=== PATIENT | male | born 1980 | race Caucasian/White ===

== ENCOUNTER 2019-11-09 00:11 | Inpatient (IN) ==
[2019-11-09] MEDS ORDERED: ONDANSETRON INJ 2 MG/ML 2 ML VIAL IV STA (01:06)
[2019-11-09] MEDS ORDERED: KETOROLAC 30 MG/ML VIAL IV STA (01:06)
[2019-11-09] MEDS ORDERED: MoRPHine SULFATE 4 MG/ML 1 ML CARP\\VIAL IV STA ×2 (01:06→01:39)
[2019-11-09] MEDS ORDERED: SODIUM CHLORIDE 0.9% 1000ML 1,000 ML IV SCH ×2 (01:15→04:05)
[2019-11-09 01:16] LABS: Basophils # (auto) 0.01 K/uL (0-0.2); Basophils % (auto) 0.1 %; Eosinophils # (auto) 0.21 K/uL (0-0.5); Eosinophils % (auto) 2.1 %; Hematocrit (blood only) 43.2 % (42-52); Hemoglobin 15.4 g/dL (14.0-18.0); Immature Granulocytes # (auto) 0.02 K/uL (0.00-0.02); Immature Granulocytes % (auto) 0.2 %; Lymphocytes # (auto) 1.39 K/uL (1.2-3.4); Lymphocytes % (auto) 13.6 %; Mean Corpuscular Hgb Conc 35.6 g/dL (32-36); Mean Corpuscular Volume 92.7 fL (80-100); Mean Platelet Volume 11.1 fL (7.4-10.4); Monocytes # (auto) 1.06 K/uL (0.11-0.59); Monocytes % (auto) 10.4 %; Neutrophils % (auto) 73.6 %; Platelet Count 213 K/uL (130-400); RDW Coefficient of Variation 12.8 % (11.5-14.5); RDW Standard Deviation 43.4 fL (36.4-46.3); Red Blood Count 4.66 M/uL (4.7-6.1); White Blood Count 10.19 K/uL (4.8-10.8)
[2019-11-09 01:25] LABS: Alanine Aminotransferase 45 U/L (12-78); Albumin Level 4.2 gm/dl (3.4-5.0); Aspartate Aminotransferase 34 U/L (15-37); BUN Creatinine Ratio 15.3 (10-20); Blood Urea Nitrogen 14 mg/dl (7-18); Calcium 9.1 mg/dl (8.5-10.1); Carbon Dioxide 28 mmol/L (21-32); Chloride 99 mmol/L (98-107); Creatinine Clr Calc Pharmacy 125.1 ml/min; Est GFR (African American) 123.4; Est GFR (Non-African American) 106.5; Glucose 99 mg/dl (70-99); Potassium 3.2 mmol/L (3.5-5.1); Sodium 136 mmol/L (136-145)
[2019-11-09 01:28] LABS: Prothrombin Time 10.7 Seconds (9.0-12.0)
[2019-11-09 01:29] LABS: Alkaline Phosphatase 83 U/L (45-117); Amylase 638 U/L (25-115); Bilirubin,Total 0.6 mg/dl (0.2-1); Globulin 4.3 gm/dl (2.5-4.0); Lipase 7358 U/L (73-393); Total Protein 8.5 gm/dl (6.4-8.2); Troponin I < 0.015 ng/ml (0-0.045)
[2019-11-09] MEDS ORDERED: IOVERSOL 100ml IV ONE (01:31)
[2019-11-09 02:52] LABS: Appearance Urine Clear (Clear); Bilirubin Urine Negative (Negative); Blood Urine Negative (Negative); Color Urine Yellow; Glucose Urine UA Negative (Negative); Ketones Urine Negative (Negative); Leukocyte Esterase Urine Negative (Negative); Nitrite Urine Negative (Negative); Protein Urine Negative (Negative); Specific Gravity Urine > 1.045 (1.000-1.030); Urobilinogen Urine Negative (Negative)
[2019-11-09] MEDS ORDERED: HYDROmorphone INJ 0.5 MG/0.5 ML SYR IV STA (03:00)
[2019-11-09 03:10] LABS: Amphetamines+Metham, Urine Neg (Neg); Barbiturates, Urine Neg (Neg); Benzodiazepine, Urine Pos (Neg); Cocaine, Urine Neg (Neg); MDMA (Ecstacy), Urine Neg (Neg); Methadone, Urine Neg (Neg); Opiate, Urine Pos (Neg); Phencyclidine, Urine Neg (Neg)
--- NOTE | 2019-11-09 04:54 | History & Physical Report ---
Date of Service November 09, 2019 Assessment & Plan (1) Recurrent acute pancreatitis: By history of patient and significant other, this is his third episode within the past few months. Upon questioning regarding alcohol intake, patient reports that he probably drinks too much, but does not think that is the cause of his pancreatitis. Amylase 638, lipase 7358 with normal LFTs. Follow labs serially CT abdomen pelvis consistent with acute pancreatitis, without suggestion of chronic pancreatitis or pseudocyst. Unable to do MRCP due to presence of metal in his recently surgerized right thumb. Patient is received 1 L normal saline while in the ED, and we will give him a second liter now. Maintenance fluids of NSS + KCl 20 mEq at 100 mils per hour Consult gastroenterology. Present on Admission?: Yes (2) Anxiety: Anxiety with depression- Continue sertraline and gabapentin. Present on Admission?: Yes (3) Depression: See above Present on Admission?: Yes (4) Peripheral neuropathy: Continue gabapentin Present on Admission?: Yes (5) Hypertension: Continue atenolol and clonidine, however, monitor with hold parameters, as patient is borderline bradycardic while in the ED. Hold HCTZ Hydralazine 10 mg IV every 4 hours PRN systolic blood pressure greater than 160 Present on Admission?: Yes (6) Hyperlipidemia: Continue simvastatin Present on Admission?: Yes (7) GERD (gastroesophageal reflux disease): Continue Nexium or substitute pantoprazole Present on Admission?: Yes (8) Alcohol use disorder: Patient is not showing any signs of withdrawal at this point, however alcohol level was normal in the ED, suggesting that he may need to be placed on AWSS protocol. Urine drug screen was positive for opiates (of which he is prescribed hydrocodone), benzodiazepines (which is not on his med list) and marijuana. Present on Admission?: Yes History of Present Illness Chief Complaint: The patient presents to the emergency department with complaint of abdominal pain worsening over the past 24 hours Primary Care Provider: Bacilio Weeks MD The patient is a 39-year-old male with a past medical history of recurrent pancreatitis, hypertension, GERD, peripheral neuropathy, depression, hyperlipidemia and status post recent surgery on right thumb on 11/07/2019. He presents to the emergency department with complaint of worsening abdominal pain similar to previous episodes of pancreatitis, which have been treated at [facility] and most recently [facility]. Laboratories in the emergency department showed amylase [address] of abdomen the pelvis was consistent with pancreatitis. Urine drug screen was positive for opiates, benzos and marijuana. He has been prescribed hydrocodone on his current med list. Allergies Allergy/AdvReac Type Severity Reaction Status Date / Time No Known Allergies Allergy Verified 11/09/19 00:56 Home Medications Home Medications Medication Instructions Recorded Confirmed Type atenolol 50 mg PO QAM 11/06/19 11/09/19 History clonidine HCl 0.3 mg PO BID 11/06/19 11/09/19 History gabapentin 800 mg PO TID 11/06/19 11/09/19 History hydrochlorothiazide 25 mg PO QAM 11/06/19 11/09/19 History hydrocodone-acetaminophen 1 tab PO Q6H PRN 11/06/19 11/09/19 History sertraline 100 mg PO QAM 11/06/19 11/09/19 History simvastatin 40 mg PO QAM 11/06/19 11/09/19 History esomeprazole magnesium [Nexium] 40 mg PO DAILY 11/09/19 11/09/19 History Past Med/Surg History Medical History (Updated 11/09/19 @ 05:41 by Donavon Segundo MD) Anxiety Depression GERD (gastroesophageal reflux disease) Hyperlipidemia Hypertension Peripheral neuropathy Surgical History History of colonoscopy History of discectomy LUMBAR Social History Smoking Status: Never smoker Cigarettes Per Day: 20 CIGS PER DAY; Second Hand Exposure: Yes; Hx Alcohol Use: Yes Alcohol type: beer Hx Substance Use: No Preferred Language: Chinese Communication Ability: Effective Miner Operator Required: No Beliefs That Will Affect Care: None Current Living Situation: Significant Other Feels Safe at Home: Yes Assistive Devices: None Review of Systems Review of Systems: The patient denies chest pain, palpitations, shortness of breath, dyspnea on exertion, cough, lower extremity swelling, sore throat, fevers, chills, sweats, weight change, fatigue, nausea, vomiting, diarrhea , constipation, blood in urine or stool, dysuria, urinary frequency or urgency, lightheadedness, dizziness, headache, memory loss, loss of consciousness, abnormal bruising or bleeding, imbalance, focal or generalized weakness, numbness or tingling in legs, generalized arthralgias or myalgias, back or neck pain, or night sweats. The review of systems is otherwise negative other than for that already noted above, and at least 10 systems have been reviewed. Physical Exam Physical Exam: The patient is awake, mildly sedated and lethargic from pain medications, well developed and well nourished, normocephalic and atraumatic, lying in bed and reports to be in moderate acute distress. HEENT--PERRL, EOMI, mucous membranes and oropharynx normal. Neck--supple. No JVD. No bruits. Thyroid normal, trachea midline, no adenopathy. Heart--normal S1 and S2. No murmurs, rubs or gallops. Lungs--clear bilaterally, no respiratory distress, no accessory muscle use. Abdomen--normal bowel sounds and soft. Nontender. Nondistended. Extremities--no cyanosis or clubbing. No edema. Right forearm and thumb in immobilizer. Dermatologic--normal skin turgor, normal color, no abnormal lymph nodes, no rash. Neurologic--cranial nerves II through XII grossly intact. Rheumatologic--normal range of motion. Psychiatric--normal affect. Results & Data Results & Data ([facility]) Vital Signs (Past 12 Hours) Vital Signs Temp Pulse Resp BP Pulse Ox 11/09/19 04:30 61 21 165/110 H 96 11/09/19 04:04 62 16 193/124 H 11/09/19 03:11 60 16 192/128 H 96 11/09/19 02:30 66 16 174/117 H 96 11/09/19 02:01 65 17 201/125 H 95 11/09/19 01:21 65 14 187/117 H 94 11/09/19 00:17 98.1 F 73 20 171/120 H 97 Laboratory Results Laboratory Results WBC 10.19 K/uL (4.8-10.8) 11/09/19 00:35 RBC 4.66 M/uL (4.7-6.1) L 11/09/19 00:35 Hgb 15.4 g/dL (14.0-18.0) 11/09/19 00:35 Hct 43.2 % (42-52) 11/09/19 00:35 MCV 92.7 fL (80-100) 11/09/19 00:35 MCH 33.0 pg (25-34) 11/09/19 00:35 MCHC 35.6 g/dL (32-36) 11/09/19 00:35 RDW Std Deviation 43.4 fL (36.4-46.3) 11/09/19 00:35 RDW Coeff of Nehemias 12.8 % (11.5-14.5) 11/09/19 00:35 Plt Count 213 K/uL (130-400) 11/09/19 00:35 MPV 11.1 fL (7.4-10.4) H 11/09/19 00:35 Immature Gran % (Auto) 0.2 % 11/09/19 00:35 Neut % (Auto) 73.6 % 11/09/19 00:35 Lymph % (Auto) 13.6 % 11/09/19 00:35 [place] % (Auto) 10.4 % 11/09/19 00:35 Eos % (Auto) 2.1 % 11/09/19 00:35 Baso % (Auto) 0.1 % 11/09/19 00:35 Neut # (Auto) 7.50 K/uL (1.4-6.5) H 11/09/19 00:35 Lymph # (Auto) 1.39 K/uL (1.2-3.4) 11/09/19 00:35 [place] # (Auto) 1.06 K/uL (0.11-0.59) H 11/09/19 00:35 Eos # (Auto) 0.21 K/uL (0-0.5) 11/09/19 00:35 Baso # (Auto) 0.01 K/uL (0-0.2) 11/09/19 00:35 Immature Gran # (Auto) 0.02 K/uL (0.00-0.02) 11/09/19 00:35 PT 10.7 Seconds (9.0-12.0) 11/09/19 00:35 INR 1.0 (0.9-1.1) 11/09/19 00:35 APTT 27.0 Seconds (21.0-31.0) 11/09/19 00:35 PTT Ratio 1.0 11/09/19 00:35 Sodium 136 mmol/L (136-145) 11/09/19 00:35 Potassium 3.2 mmol/L (3.5-5.1) L 11/09/19 00:35 Chloride 99 mmol/L (98-107) 11/09/19 00:35 Carbon Dioxide 28 mmol/L (21-32) 11/09/19 00:35 Anion Gap 9.0 (3-11) 11/09/19 00:35 BUN 14 mg/dl (7-18) 11/09/19 00:35 Creatinine 0.90 mg/dl (0.6-1.4) 11/09/19 00:35 Est Cr Clr Drug Dosing 125.1 ml/min 11/09/19 00:35 Est GFR ( Amer) 123.4 11/09/19 00:35 Est GFR (Non-Af Amer) 106.5 11/09/19 00:35 BUN/Creatinine Ratio 15.3 (10-20) 11/09/19 00:35 Glucose 99 mg/dl (70-99) 11/09/19 00:35 Calcium 9.1 mg/dl (8.5-10.1) 11/09/19 00:35 Total Bilirubin 0.6 mg/dl (0.2-1) 11/09/19 00:35 AST 34 U/L (15-37) 11/09/19 00:35 ALT 45 U/L (12-78) 11/09/19 00:35 Alkaline Phosphatase 83 U/L (45-117) 11/09/19 00:35 Troponin I < 0.015 ng/ml (0-0.045) 11/09/19 00:35 Total Protein 8.5 gm/dl (6.4-8.2) H 11/09/19 00:35 Albumin 4.2 gm/dl (3.4-5.0) 11/09/19 00:35 Globulin 4.3 gm/dl (2.5-4.0) H 11/09/19 00:35 Albumin/Globulin Ratio 1.0 (0.9-2) 11/09/19 00:35 Amylase 638 U/L (25-115) H 11/09/19 00:35 Lipase 7358 U/L (73-393) H 11/09/19 00:35 Urine Color Yellow 11/09/19 02:42 Urine Appearance Clear (Clear) 11/09/19 02:42 Urine pH 7.0 (4.5-7.5) 11/09/19 02:42 Ur Specific [place] > 1.045 (1.000-1.030) H 11/09/19 02:42 Urine Protein Negative (Negative) 11/09/19 02:42 Urine Glucose (UA) Negative (Negative) 11/09/19 02:42 Urine Ketones Negative (Negative) 11/09/19 02:42 Urine Blood Negative (Negative) 11/09/19 02:42 Urine Nitrite Negative (Negative) 11/09/19 02:42 Urine Bilirubin Negative (Negative) 11/09/19 02:42 Urine Urobilinogen Negative (Negative) 11/09/19 02:42 Ur Leukocyte Esterase Negative (Negative) 11/09/19 02:42 Urine Opiates Screen Pos (Neg) H 11/09/19 02:42 Ur Methadone, Qual Neg (Neg) 11/09/19 02:42 Urine Barbiturates Neg (Neg) 11/09/19 02:42 Ur Phencyclidine (PCP) Neg (Neg) 11/09/19 02:42 U Amphetamin/Meth Scrn Neg (Neg) 11/09/19 02:42 MDMA (Ecstasy) Screen Neg (Neg) 11/09/19 02:42 U Benzodiazepines Scrn Pos (Neg) H 11/09/19 02:42 Ur Cocaine Metabolite Neg (Neg) 11/09/19 02:42 U Marijuana (THC) Screen Pos (Neg) H 11/09/19 02:42 Ethyl Alcohol mg/dL < 3.0 mg/dl (0-3) 11/09/19 01:36 Diagnostic Findings [facility] Patient: RAJI ARRINGTON JR (Male) : 78 Status: ER Date: 11/09/19 01:55 Room #: History: UPPER ABD PAIN, H/O PANCREATITIS Slices: [id number] Priors: Tech: Moiz Monteiro @ [phone] Exams: CT ABDOMEN & PELVIS With Contrast Contrast: IV Amt: 92 ML OPTIRAY 320 Accession Numbers: [id number] Preliminary Findings Only See Final Report For Complete Findings CT ABDOMEN & PELVIS With Contrast: Prominent retroperitoneal fat stranding and edema noted surrounding the pancreas and descending duodenum with extension to the left anterior pararenal fascia. Primary consideration is pancreatitis. Duodenitis is considered much less likely. Please correlate with laboratory findings. No loculated pseudocyst or pancreatic ductal dilatation. Mild free fluid in the pelvis is presumed minimal extension from the retroperitoneal process. Hepatic steatosis. The gallbladder, spleen, adrenal glands and kidneys are otherwise unremarkable. No bowel obstruction or significant focal bowel mucosal abnormality. No pneumoperitoneum. Incidental normal caliber appendix in the right lower quadrant. Bladder is mildly distended without significant wall abnormalities or calcifications. No acute osseous or significant overlying soft tissue abnormality. Radiologist: Escobar Cody MD Study ready at 02:00 and initial results transmitted at 02:18 *This report constitutes a preliminary interpretation only. Non-acute findings felt to be unrelated to the clinical presentation may not be discussed in this report. The study will be interpreted and a final report will be generated by the local Radiologist the following shift. To reach the hospital radiology department call [phone]. If a discrepancy is found between the preliminary and final interpretations of this study, please notify us via our Client Portal at [email or web address]!, under QA Exams.You can also fax this report with a description of the discrepancy, or include the final report, to our daytime fax number [phone].If faxing, please indicate the severity of discrepancy using one of the following categories: [ ] 1 - Agree/Informational [ ] 2 - Unlikely to Affect Management [ ] 3 - Possible Eventual Change of Management [ ] 4 - Probable Immediate Change of Management For all other patient related information, please fax us at [phone]. [id number] Code Status & VTE Plan Code Status Full code VTE Prophylaxis Plan VTE Prophylaxis will be ordered: Yes PG Care Time/CCT Total # of Minutes Spent Total Time Spent with Patient: Total time spent is greater than 50% in coordination of care (as documented) at patient's floor/unit and/or counseling patient: Coding Level of Care Code 08546 Initial Inpt Care Lvl 3 Diagnoses Recurrent acute pancreatitis K85.90 Anxiety F41.9 Depression F32.9 Peripheral neuropathy G62.9 Hypertension I10 Hyperlipidemia E78.5 GERD (gastroesophageal reflux disease) K21.9 Alcohol use disorder
--- NOTE | 2019-11-09 05:21 | Emergency Department Note ---
History of Present Illness General Chief complaint: Abdominal Pain Stated complaint: ABD PAIN Time Seen by Provider: 11/09/19 00:39 History of Present Illness Maximum Pain Intensity: 10 Home Medications Home Medications Medication Instructions Recorded Confirmed Type atenolol 50 mg PO QAM 11/06/19 11/09/19 History clonidine HCl 0.3 mg PO BID 11/06/19 11/09/19 History gabapentin 800 mg PO TID 11/06/19 11/09/19 History hydrochlorothiazide 25 mg PO QAM 11/06/19 11/09/19 History hydrocodone-acetaminophen 1 tab PO Q6H PRN 11/06/19 11/09/19 History sertraline 100 mg PO QAM 11/06/19 11/09/19 History simvastatin 40 mg PO QAM 11/06/19 11/09/19 History esomeprazole magnesium [Nexium] 40 mg PO DAILY 11/09/19 11/09/19 History Allergies Allergy/AdvReac Type Severity Reaction Status Date / Time No Known Allergies Allergy Verified 11/09/19 00:56 Past Med/Surg History Medical History Anxiety Depression Hyperlipidemia Hypertension Peripheral neuropathy Surgical History History of colonoscopy History of discectomy LUMBAR Social History Smoking Status: Never smoker Cigarettes Per Day: 20 CIGS PER DAY; Second Hand Exposure: Yes; Hx Alcohol Use: Yes Alcohol type: beer Hx Substance Use: No Preferred Language: Sami Communication Ability: Effective Infantry Assaultman Required: No Beliefs That Will Affect Care: None Current Living Situation: Significant Other Feels Safe at Home: Yes Assistive Devices: None Physical Exam Vital Signs Vital Signs - 24 hr 11/09/19 00:17 11/09/19 01:21 11/09/19 02:01 Temperature 36.7 C Temperature Source Oral Pulse Rate 73 65 65 Pulse Rate from SpO2 Sensor 65 65 Pulse Rhythm Regular Pulse Strength Normal Respiratory Rate 20 14 17 Respiratory Effort / Characteristics Non-Labored Spontaneous Respiratory Depth Normal Respiratory Pattern Regular Blood Pressure 171/120 H 187/117 H 201/125 H Blood Pressure Mean 137 138 151 Blood Pressure Position Sitting Pulse Oximetry 97 94 95 Oxygen Delivery Method Room Air Sepsis Recent Fever Within 48 Hours No Sepsis New/Unexplained Change in Mental Status No Sepsis Action Taken by Nursing No Action Required 11/09/19 02:30 11/09/19 03:11 11/09/19 04:04 Temperature Temperature Source Pulse Rate 66 60 62 Pulse Rate from SpO2 Sensor 61 Pulse Rhythm Pulse Strength Respiratory Rate 16 16 16 Respiratory Effort / Characteristics Respiratory Depth Respiratory Pattern Blood Pressure 174/117 H 192/128 H 193/124 H Blood Pressure Mean 123 148 139 Blood Pressure Position Pulse Oximetry 96 96 Oxygen Delivery Method Sepsis Recent Fever Within 48 Hours Sepsis New/Unexplained Change in Mental Status Sepsis Action Taken by Nursing 11/09/19 04:30 Temperature Temperature Source Pulse Rate 61 Pulse Rate from SpO2 Sensor Pulse Rhythm Pulse Strength Respiratory Rate 21 Respiratory Effort / Characteristics Respiratory Depth Respiratory Pattern Blood Pressure 165/110 H Blood Pressure Mean 122 Blood Pressure Position Pulse Oximetry 96 Oxygen Delivery Method Sepsis Recent Fever Within 48 Hours Sepsis New/Unexplained Change in Mental Status Sepsis Action Taken by Nursing Course Administered Medications Discontinued Medications Hydromorphone HCl (Hydromorphone Inj 0.5 Mg/0.5 Ml Syr) 0.5 mg IV NOW STA Stop: 11/09/19 03:01 Last Admin: 11/09/19 03:12 Dose: 0.5 mg Documented by: [id number] Sodium Chloride (Nss 1000ml) 1,000 mls @ 999 mls/hr IV .Q1H1M CANDICE Stop: 11/09/19 02:15 Last Infusion: 11/09/19 02:12 Dose: 0 mls/hr Documented by: [id number] Admin: 11/09/19 01:15 Dose: 999 mls/hr Documented by: [id number] Ioversol (Ioversol 100ml) 100 ml IV ONCE ONE Stop: 11/09/19 01:32 Last Admin: 11/09/19 01:31 Dose: 92 ml Documented by: [id number] Ketorolac Tromethamine (Ketorolac 30 Mg/Ml Vial) 30 mg IV NOW STA Stop: 11/09/19 01:07 Last Admin: 11/09/19 01:16 Dose: 30 mg Documented by: [id number] Morphine Sulfate (Morphine Sulfate 4 Mg/Ml 1 Ml Carp\Vial) 4 mg IV NOW STA Stop: 11/09/19 01:07 Last Admin: 11/09/19 01:16 Dose: 4 mg Documented by: [id number] Morphine Sulfate (Morphine Sulfate 4 Mg/Ml 1 Ml Carp\Vial) 4 mg IV NOW STA Stop: 11/09/19 01:40 Last Admin: 11/09/19 02:12 Dose: 4 mg Documented by: [id number] Ondansetron HCl (Ondansetron Inj 2 Mg/Ml 2 Ml Vial) 4 mg IV NOW STA Stop: 11/09/19 01:07 Last Admin: 11/09/19 01:16 Dose: 4 mg Documented by: [id number] Medical Decision Making Laboratory Data Result diagrams: 11/09/19 00:35 11/09/19 00:35 Lab Results 11/09/19 11/09/19 11/09/19 Range/Units 00:35 00:35 00:35 WBC 10.19 (4.8-10.8) K/uL RBC 4.66 L (4.7-6.1) M/uL Hgb 15.4 (14.0-18.0) g/dL Hct 43.2 (42-52) % MCV 92.7 (80-100) fL MCH 33.0 (25-34) pg MCHC 35.6 (32-36) g/dL RDW Std Deviation 43.4 (36.4-46.3) fL RDW Coeff of Nehemias 12.8 (11.5-14.5) % Plt Count 213 (130-400) K/uL MPV 11.1 H (7.4-10.4) fL Immature Gran % (Auto) 0.2 % Neut % (Auto) 73.6 % Lymph % (Auto) 13.6 % [place] % (Auto) 10.4 % Eos % (Auto) 2.1 % Baso % (Auto) 0.1 % Neut # (Auto) 7.50 H (1.4-6.5) K/uL Lymph # (Auto) 1.39 (1.2-3.4) K/uL [place] # (Auto) 1.06 H (0.11-0.59) K/uL Eos # (Auto) 0.21 (0-0.5) K/uL Baso # (Auto) 0.01 (0-0.2) K/uL Immature Gran # (Auto) 0.02 (0.00-0.02) K/uL PT 10.7 (9.0-12.0) Seconds INR 1.0 (0.9-1.1) APTT 27.0 (21.0-31.0) Seconds PTT Ratio 1.0 Sodium 136 (136-145) mmol/L Potassium 3.2 L (3.5-5.1) mmol/L Chloride 99 (98-107) mmol/L Carbon Dioxide 28 (21-32) mmol/L Anion Gap 9.0 (3-11) BUN 14 (7-18) mg/dl Creatinine 0.90 (0.6-1.4) mg/dl Est Cr Clr Drug Dosing 125.1 ml/min Est GFR ( Amer) 123.4 Est GFR (Non-Af Amer) 106.5 BUN/Creatinine Ratio 15.3 (10-20) Glucose 99 (70-99) mg/dl Calcium 9.1 (8.5-10.1) mg/dl Total Bilirubin 0.6 (0.2-1) mg/dl AST 34 (15-37) U/L ALT 45 (12-78) U/L Alkaline Phosphatase 83 (45-117) U/L Troponin I < 0.015 (0-0.045) ng/ml Total Protein 8.5 H (6.4-8.2) gm/dl Albumin 4.2 (3.4-5.0) gm/dl Globulin 4.3 H (2.5-4.0) gm/dl Albumin/Globulin Ratio 1.0 (0.9-2) Amylase 638 H (25-115) U/L Lipase 7358 H (73-393) U/L Urine Color Urine Appearance (Clear) Urine pH (4.5-7.5) Ur Specific [place] (1.000-1.030) Urine Protein (Negative) Urine Glucose (UA) (Negative) Urine Ketones (Negative) Urine Blood (Negative) Urine Nitrite (Negative) Urine Bilirubin (Negative) Urine Urobilinogen (Negative) Ur Leukocyte Esterase (Negative) Urine Opiates Screen (Neg) Ur Methadone, Qual (Neg) Urine Barbiturates (Neg) Ur Phencyclidine (PCP) (Neg) U Amphetamin/Meth Scrn (Neg) MDMA (Ecstasy) Screen (Neg) U Benzodiazepines Scrn (Neg) Ur Cocaine Metabolite (Neg) U Marijuana (THC) Screen (Neg) Ethyl Alcohol mg/dL (0-3) mg/dl 10/01/20 10/01/20 10/01/20 Range/Units 01:36 02:42 02:42 WBC (4.8-10.8) K/uL RBC (4.7-6.1) M/uL Hgb (14.0-18.0) g/dL Hct (42-52) % MCV (80-100) fL MCH (25-34) pg MCHC (32-36) g/dL RDW Std Deviation (36.4-46.3) fL RDW Coeff of Nehemias (11.5-14.5) % Plt Count (130-400) K/uL MPV (7.4-10.4) fL Immature Gran % (Auto) % Neut % (Auto) % Lymph % (Auto) % [place] % (Auto) % Eos % (Auto) % Baso % (Auto) % Neut # (Auto) (1.4-6.5) K/uL Lymph # (Auto) (1.2-3.4) K/uL [place] # (Auto) (0.11-0.59) K/uL Eos # (Auto) (0-0.5) K/uL Baso # (Auto) (0-0.2) K/uL Immature Gran # (Auto) (0.00-0.02) K/uL PT (9.0-12.0) Seconds INR (0.9-1.1) APTT (21.0-31.0) Seconds PTT Ratio Sodium (136-145) mmol/L Potassium (3.5-5.1) mmol/L Chloride (98-107) mmol/L Carbon Dioxide (21-32) mmol/L Anion Gap (3-11) BUN (7-18) mg/dl Creatinine (0.6-1.4) mg/dl Est Cr Clr Drug Dosing ml/min Est GFR ( Amer) Est GFR (Non-Af Amer) BUN/Creatinine Ratio (10-20) Glucose (70-99) mg/dl Calcium (8.5-10.1) mg/dl Total Bilirubin (0.2-1) mg/dl AST (15-37) U/L ALT (12-78) U/L Alkaline Phosphatase (45-117) U/L Troponin I (0-0.045) ng/ml Total Protein (6.4-8.2) gm/dl Albumin (3.4-5.0) gm/dl Globulin (2.5-4.0) gm/dl Albumin/Globulin Ratio (0.9-2) Amylase (25-115) U/L Lipase (73-393) U/L Urine Color Yellow Urine Appearance Clear (Clear) Urine pH 7.0 (4.5-7.5) Ur Specific [place] > 1.045 H (1.000-1.030) Urine Protein Negative (Negative) Urine Glucose (UA) Negative (Negative) Urine Ketones Negative (Negative) Urine Blood Negative (Negative) Urine Nitrite Negative (Negative) Urine Bilirubin Negative (Negative) Urine Urobilinogen Negative (Negative) Ur Leukocyte Esterase Negative (Negative) Urine Opiates Screen Pos H (Neg) Ur Methadone, Qual Neg (Neg) Urine Barbiturates Neg (Neg) Ur Phencyclidine (PCP) Neg (Neg) U Amphetamin/Meth Scrn Neg (Neg) MDMA (Ecstasy) Screen Neg (Neg) U Benzodiazepines Scrn Pos H (Neg) Ur Cocaine Metabolite Neg (Neg) U Marijuana (THC) Screen Pos H (Neg) Ethyl Alcohol mg/dL < 3.0 (0-3) mg/dl Discharge Plan Visit Data Chief Complaint: Abdominal Pain Stated Complaint: ABD PAIN ED Provider: [facility] ED Midlevel Provider: Anson Singleton Prescriptions Prescriptions: No Action clonidine HCl 0.3 mg Tablet 0.3 mg PO BID RF: 0 sertraline 100 mg Tablet 100 mg PO QAM RF: 0 simvastatin 40 mg Tablet 40 mg PO QAM RF: 0 gabapentin 800 mg Tablet 800 mg PO TID RF: 0 hydrochlorothiazide 25 mg Tablet 25 mg PO QAM RF: 0 atenolol 50 mg Tablet 50 mg PO QAM RF: 0 hydrocodone-acetaminophen 5-325 mg Tablet 1 tab PO Q6H PRN (Reason: Pain) RF: 0 esomeprazole magnesium [Nexium] 40 mg Capsule,Delayed Release(Dr/Ec) 40 mg PO DAILY RF: 0
--- NOTE | 2019-11-09 05:25 | Emergency Department Note ---
History of Present Illness General Chief complaint: Abdominal Pain Stated complaint: ABD PAIN Time Seen by Provider: 11/09/19 00:39 History of Present Illness Maximum Pain Intensity: 10 This is a 39-year-old male presenting to the emergency department for evaluation of epigastric abdominal pain for the past few hours. The patient has a history of alcohol abuse and intermittent pancreatitis. This is at least his third episode of similar symptoms in the past few months. The patient did have an orthopedic surgery yesterday for a right thumb fracture, and states that he took Vicodin without any relief of his symptoms. He is not having fever or chills. No difficulty breathing. The patient is not having difficulty regarding the orthopedic procedure, stating that all of his discomfort is in the epigastric abdomen. He rates his current discomfort a 10/10 and is requesting pain and nausea medicine. Home Medications Home Medications Medication Instructions Recorded Confirmed Type atenolol 50 mg PO QAM 11/06/19 11/09/19 History clonidine HCl 0.3 mg PO BID 11/06/19 11/09/19 History gabapentin 800 mg PO TID 11/06/19 11/09/19 History hydrochlorothiazide 25 mg PO QAM 11/06/19 11/09/19 History hydrocodone-acetaminophen 1 tab PO Q6H PRN 11/06/19 11/09/19 History sertraline 100 mg PO QAM 11/06/19 11/09/19 History simvastatin 40 mg PO QAM 11/06/19 11/09/19 History esomeprazole magnesium [Nexium] 40 mg PO DAILY 11/09/19 11/09/19 History Allergies Allergy/AdvReac Type Severity Reaction Status Date / Time No Known Allergies Allergy Verified 11/09/19 00:56 Past Med/Surg History Medical History Anxiety Depression GERD (gastroesophageal reflux disease) Hyperlipidemia Hypertension Peripheral neuropathy Surgical History History of colonoscopy History of discectomy LUMBAR Social History Smoking Status: Never smoker Cigarettes Per Day: 20 CIGS PER DAY; Second Hand Exposure: Yes; Hx Alcohol Use: Yes Alcohol type: beer Hx Substance Use: No Preferred Language: Icelandic Communication Ability: Effective Biometry Teacher Required: No Beliefs That Will Affect Care: None Current Living Situation: Significant Other Feels Safe at Home: Yes Assistive Devices: None Review of Systems A total of 10 systems reviewed and were otherwise negative Physical Exam Vital Signs Vital Signs - 24 hr 11/09/19 00:17 11/09/19 01:21 11/09/19 02:01 Temperature 36.7 C Temperature Source Oral Pulse Rate 73 65 65 Pulse Rate from SpO2 Sensor 65 65 Pulse Rhythm Regular Pulse Strength Normal Respiratory Rate 20 14 17 Respiratory Effort / Characteristics Non-Labored Spontaneous Respiratory Depth Normal Respiratory Pattern Regular Blood Pressure 171/120 H 187/117 H 201/125 H Blood Pressure Mean 137 138 151 Blood Pressure Position Sitting Pulse Oximetry 97 94 95 Oxygen Delivery Method Room Air Sepsis Recent Fever Within 48 Hours No Sepsis New/Unexplained Change in Mental Status No Sepsis Action Taken by Nursing No Action Required 11/09/19 02:30 11/09/19 03:11 11/09/19 04:04 Temperature Temperature Source Pulse Rate 66 60 62 Pulse Rate from SpO2 Sensor 61 Pulse Rhythm Pulse Strength Respiratory Rate 16 16 16 Respiratory Effort / Characteristics Respiratory Depth Respiratory Pattern Blood Pressure 174/117 H 192/128 H 193/124 H Blood Pressure Mean 123 148 139 Blood Pressure Position Pulse Oximetry 96 96 Oxygen Delivery Method Sepsis Recent Fever Within 48 Hours Sepsis New/Unexplained Change in Mental Status Sepsis Action Taken by Nursing VITALS: Vitals are noted on the nurse's note and reviewed by myself. Vital signs stable. GENERAL: Well-developed, well-nourished, white male who appears in moderate discomfort secondary to his stated complaint., NECK: Supple without nuchal rigidity. No lymphadenopathy. No thyromegaly. Cervical spine is nontender. HEART: Regular rate and rhythm without murmurs gallops or rubs. LUNGS: Clear to auscultation bilaterally without wheezes, rales or rhonchi. No retractions or accessory muscle use. ABDOMEN: Positive normal bowel sounds x 4. Firm with positive epigastric tenderness. No rebound or guarding. No lower abdominal tenderness. MUSCULOSKELETAL: Bulky splint placed on the right arm is noted. No significant extremity tenderness is reported. NEURO: Patient was alert and oriented to person place and time. CN II through XII grossly intact. Course Administered Medications Diphenhydramine HCl (Diphenhydramine Hcl 50 Mg/Ml Vial) 25 mg IV Q3H PRN PRN Reason: Moderate Pain Stop: 12/09/19 06:23 Last Admin: 11/09/19 06:46 Dose: 25 mg Documented by: Hydralazine HCl (Hydralazine Hcl 20 Mg/Ml Vial) 10 mg IV Q4H PRN PRN Reason: Blood Pressure - High Stop: 12/09/19 06:23 Last Admin: 11/09/19 06:40 Dose: 10 mg Documented by: [id number] Hydromorphone HCl (Hydromorphone Inj 0.5 Mg/0.5 Ml Syr) 0.2 mg IV Q3H PRN PRN Reason: Severe Pain Stop: 11/23/19 04:05 Last Admin: 11/09/19 05:55 Dose: 0.2 mg Documented by: [id number] Discontinued Medications Hydrocodone Bitart/Acetaminophen (Hydrocodone/Acetamophen 5/325mg Tab) 1 tab PO NOW STA Stop: 11/09/19 05:50 Last Admin: 11/09/19 06:33 Dose: 1 tab Documented by: [id number] Hydromorphone HCl (Hydromorphone Inj 0.5 Mg/0.5 Ml Syr) 0.5 mg IV NOW STA Stop: 11/09/19 03:01 Last Admin: 11/09/19 03:12 Dose: 0.5 mg Documented by: [id number] Sodium Chloride (Nss 1000ml) 1,000 mls @ 999 mls/hr IV .Q1H1M CANDICE Stop: 11/09/19 02:15 Last Infusion: 11/09/19 02:12 Dose: 0 mls/hr Documented by: [id number] Admin: 11/09/19 01:15 Dose: 999 mls/hr Documented by: [id number] Sodium Chloride (Nss 1000ml) 1,000 mls @ 999 mls/hr IV .Q1H1M CANDICE Stop: 11/09/19 05:05 Last Admin: 11/09/19 05:54 Dose: 999 mls/hr Documented by: [id number] Ioversol (Ioversol 100ml) 100 ml IV ONCE ONE Stop: 11/09/19 01:32 Last Admin: 11/09/19 01:31 Dose: 92 ml Documented by: [id number] Ketorolac Tromethamine (Ketorolac 30 Mg/Ml Vial) 30 mg IV NOW STA Stop: 11/09/19 01:07 Last Admin: 11/09/19 01:16 Dose: 30 mg Documented by: [id number] Morphine Sulfate (Morphine Sulfate 4 Mg/Ml 1 Ml Carp\Vial) 4 mg IV NOW STA Stop: 11/09/19 01:07 Last Admin: 11/09/19 01:16 Dose: 4 mg Documented by: [id number] Morphine Sulfate (Morphine Sulfate 4 Mg/Ml 1 Ml Carp\Vial) 4 mg IV NOW STA Stop: 11/09/19 01:40 Last Admin: 11/09/19 02:12 Dose: 4 mg Documented by: [id number] Ondansetron HCl (Ondansetron Inj 2 Mg/Ml 2 Ml Vial) 4 mg IV NOW STA Stop: 11/09/19 01:07 Last Admin: 11/09/19 01:16 Dose: 4 mg Documented by: [id number] Medical Decision Making Differential Diagnosis Differential diagnosis: Etiologies such as biliary colic, cholecystitis, hepatitis, pancreatitis, cardiac disease, pancreatitis, gastritis, peptic ulcer disease, appendicitis, cystitis, diverticulitis, mesenteric ischemia, inflammatory bowel disease, ileus, bowel obstruction, testicular/adnexal torsion, aortic pathology, shingles, as well as others were considered Laboratory Data Result diagrams: 11/09/19 00:35 11/09/19 00:35 Lab Results 11/09/19 11/09/19 11/09/19 Range/Units 00:35 00:35 00:35 WBC 10.19 (4.8-10.8) K/uL RBC 4.66 L (4.7-6.1) M/uL Hgb 15.4 (14.0-18.0) g/dL Hct 43.2 (42-52) % MCV 92.7 (80-100) fL MCH 33.0 (25-34) pg MCHC 35.6 (32-36) g/dL RDW Std Deviation 43.4 (36.4-46.3) fL RDW Coeff of Nehemias 12.8 (11.5-14.5) % Plt Count 213 (130-400) K/uL MPV 11.1 H (7.4-10.4) fL Immature Gran % (Auto) 0.2 % Neut % (Auto) 73.6 % Lymph % (Auto) 13.6 % [place] % (Auto) 10.4 % Eos % (Auto) 2.1 % Baso % (Auto) 0.1 % Neut # (Auto) 7.50 H (1.4-6.5) K/uL Lymph # (Auto) 1.39 (1.2-3.4) K/uL [place] # (Auto) 1.06 H (0.11-0.59) K/uL Eos # (Auto) 0.21 (0-0.5) K/uL Baso # (Auto) 0.01 (0-0.2) K/uL Immature Gran # (Auto) 0.02 (0.00-0.02) K/uL PT 10.7 (9.0-12.0) Seconds INR 1.0 (0.9-1.1) APTT 27.0 (21.0-31.0) Seconds PTT Ratio 1.0 Sodium 136 (136-145) mmol/L Potassium 3.2 L (3.5-5.1) mmol/L Chloride 99 (98-107) mmol/L Carbon Dioxide 28 (21-32) mmol/L Anion Gap 9.0 (3-11) BUN 14 (7-18) mg/dl Creatinine 0.90 (0.6-1.4) mg/dl Est Cr Clr Drug Dosing 125.1 ml/min Est GFR ( Amer) 123.4 Est GFR (Non-Af Amer) 106.5 BUN/Creatinine Ratio 15.3 (10-20) Glucose 99 (70-99) mg/dl Calcium 9.1 (8.5-10.1) mg/dl Total Bilirubin 0.6 (0.2-1) mg/dl AST 34 (15-37) U/L ALT 45 (12-78) U/L Alkaline Phosphatase 83 (45-117) U/L Troponin I < 0.015 (0-0.045) ng/ml Total Protein 8.5 H (6.4-8.2) gm/dl Albumin 4.2 (3.4-5.0) gm/dl Globulin 4.3 H (2.5-4.0) gm/dl Albumin/Globulin Ratio 1.0 (0.9-2) Amylase 638 H (25-115) U/L Lipase 7358 H (73-393) U/L Urine Color Urine Appearance (Clear) Urine pH (4.5-7.5) Ur Specific [place] (1.000-1.030) Urine Protein (Negative) Urine Glucose (UA) (Negative) Urine Ketones (Negative) Urine Blood (Negative) Urine Nitrite (Negative) Urine Bilirubin (Negative) Urine Urobilinogen (Negative) Ur Leukocyte Esterase (Negative) Urine Opiates Screen (Neg) Ur Methadone, Qual (Neg) Urine Barbiturates (Neg) Ur Phencyclidine (PCP) (Neg) U Amphetamin/Meth Scrn (Neg) MDMA (Ecstasy) Screen (Neg) U Benzodiazepines Scrn (Neg) Ur Cocaine Metabolite (Neg) U Marijuana (THC) Screen (Neg) Ethyl Alcohol mg/dL (0-3) mg/dl 11/09/19 11/09/19 11/09/19 Range/Units 01:36 02:42 02:42 WBC (4.8-10.8) K/uL RBC (4.7-6.1) M/uL Hgb (14.0-18.0) g/dL Hct (42-52) % MCV (80-100) fL MCH (25-34) pg MCHC (32-36) g/dL RDW Std Deviation (36.4-46.3) fL RDW Coeff of Nehemias (11.5-14.5) % Plt Count (130-400) K/uL MPV (7.4-10.4) fL Immature Gran % (Auto) % Neut % (Auto) % Lymph % (Auto) % [place] % (Auto) % Eos % (Auto) % Baso % (Auto) % Neut # (Auto) (1.4-6.5) K/uL Lymph # (Auto) (1.2-3.4) K/uL [place] # (Auto) (0.11-0.59) K/uL Eos # (Auto) (0-0.5) K/uL Baso # (Auto) (0-0.2) K/uL Immature Gran # (Auto) (0.00-0.02) K/uL PT (9.0-12.0) Seconds INR (0.9-1.1) APTT (21.0-31.0) Seconds PTT Ratio Sodium (136-145) mmol/L Potassium (3.5-5.1) mmol/L Chloride (98-107) mmol/L Carbon Dioxide (21-32) mmol/L Anion Gap (3-11) BUN (7-18) mg/dl Creatinine (0.6-1.4) mg/dl Est Cr Clr Drug Dosing ml/min Est GFR ( Amer) Est GFR (Non-Af Amer) BUN/Creatinine Ratio (10-20) Glucose (70-99) mg/dl Calcium (8.5-10.1) mg/dl Total Bilirubin (0.2-1) mg/dl AST (15-37) U/L ALT (12-78) U/L Alkaline Phosphatase (45-117) U/L Troponin I (0-0.045) ng/ml Total Protein (6.4-8.2) gm/dl Albumin (3.4-5.0) gm/dl Globulin (2.5-4.0) gm/dl Albumin/Globulin Ratio (0.9-2) Amylase (25-115) U/L Lipase (73-393) U/L Urine Color Yellow Urine Appearance Clear (Clear) Urine pH 7.0 (4.5-7.5) Ur Specific [place] > 1.045 H (1.000-1.030) Urine Protein Negative (Negative) Urine Glucose (UA) Negative (Negative) Urine Ketones Negative (Negative) Urine Blood Negative (Negative) Urine Nitrite Negative (Negative) Urine Bilirubin Negative (Negative) Urine Urobilinogen Negative (Negative) Ur Leukocyte Esterase Negative (Negative) Urine Opiates Screen Pos H (Neg) Ur Methadone, Qual Neg (Neg) Urine Barbiturates Neg (Neg) Ur Phencyclidine (PCP) Neg (Neg) U Amphetamin/Meth Scrn Neg (Neg) MDMA (Ecstasy) Screen Neg (Neg) U Benzodiazepines Scrn Pos H (Neg) Ur Cocaine Metabolite Neg (Neg) U Marijuana (THC) Screen Pos H (Neg) Ethyl Alcohol mg/dL < 3.0 (0-3) mg/dl Imaging Data Radiologist's Impression: Preliminary Findings Only See Final Report For Complete Findings CT ABDOMEN & PELVIS With Contrast: Prominent retroperitoneal fat stranding and edema noted surrounding the pancreas and descending duodenum with extension to the left anterior pararenal fascia. Primary consideration is pancreatitis. Duodenitis is considered much less likely. Please correlate with laboratory findings. No loculated pseudocyst or pancreatic ductal dilatation. Mild free fluid in the pelvis is presumed minimal extension from the retroperitoneal process. Hepatic steatosis. The gallbladder, spleen, adrenal glands and kidneys are otherwise unremarkable. No bowel obstruction or significant focal bowel mucosal abnormality. No pneumoperitoneum. Incidental normal caliber appendix in the right lower quadrant. Bladder is mildly distended without significant wall abnormalities or calcifications. No acute osseous or significant overlying soft tissue abnormality. MDM Narrative Physical exam and history were performed. Nursing notes, EMR, and Medication List were personally reviewed. Patient appears to have epigastric abdominal pain bring him to the ER. Evidently he has a history of recurrent pancreatitis and is concerned about the same. He did have orthopedic surgery yesterday, however this seems to have gone well. IV access was established and labs were obtained. The patient was hydrated with normal saline and given IV morphine, IV Zofran, and IV Toradol. He was sent to CT scan to further evaluate his discomfort. The patient's blood work is as above and was reviewed. He does not have a significantly elevated white blood cell count, gross anemia, bandemia, or significant electrolyte imbalance. Troponin x1 is negative. His amylase is 638 and lipase is 7358, which would correlate with acute pancreatitis. Urine does not show evidence of infection. Drug abuse screen is positive for opioids, benzodiazepines, and marijuana. Alcohol is negative. CT scan was performed and reviewed by myself and radiology. CT scan is concerning for pancreatitis, which does correlate clinically. On reevaluation the patient continues to be quite uncomfortable. I did give him a second round of morphine, and ultimately gave him IV Dilaudid which seemed to have provided him the most relief. He does not appear well enough for discharge home. His case was discussed with the on-call hospitalist, Dr. Segundo, who agreed to evaluate him here in the ER. Please see Dr. Segundo's dictation for further patient course, plan, and disposition. The chart was completed utilizing [employer] Voice Recognition Software. Grammatical errors, random word insertions, pronoun errors, and incomplete sentences are an occasional consequence of this system due to software limi tations, ambient noise, and hardware issues. Any formal questions or concerns about the content, text, or information contained within the body of this dictation should be directly addressed to the provider for clarification. . Impression & Plan Acute pancreatitis, Acute upper abdominal pain Discharge Plan Visit Data Chief Complaint: Abdominal Pain Stated Complaint: ABD PAIN ED Provider: Winter [facility] ED Midlevel Provider: Anson Singleton Discharge Problem: Acute pancreatitis, Acute upper abdominal pain Discharge Instructions Interventions: ED Discharge Assessment Last Done: 11/09/19 06:07
[2019-11-09] MEDS ORDERED: HYDROCODONE/ACETAMOPHEN 5/325MG TAB PO STA (05:49)
[2019-11-09] MEDS: HYDROmorphone INJ 0.5 MG/0.5 ML SYR IV PRN ×2 (05:55→09:03)
[2019-11-09] MEDS ORDERED: ALUMINUM/MAGNESIUM SUSP 30 ML UDC PO PRN (06:24)
[2019-11-09] MEDS ORDERED: MAGNESIUM HYDROXIDE SUSP 30 ML UDC PO PRN (06:24)
[2019-11-09] MEDS ORDERED: ONDANSETRON INJ 2 MG/ML 2 ML VIAL IV PRN (06:24)
[2019-11-09] MEDS ORDERED: HYDROCODONE/ACETAMOPHEN 5/325MG TAB PO PRN (06:29)
[2019-11-09] MEDS: HydrALAZINE HCL 20 MG/ML VIAL IV PRN ×2 (06:40→12:09)
[2019-11-09] MEDS: DiphenhydrAMINE HCL 50 MG/ML VIAL IV PRN (06:46)
[2019-11-09] MEDS ORDERED: HYDROmorphone INJ 1 MG/ML SYRINGE IV STA ×2 (07:10→12:05)
[2019-11-09] MEDS ORDERED: HYDROmorphone INJ 1 MG/ML SYRINGE IV PRN (07:10)
[2019-11-09] MEDS: NSS + 20MEQ KCL 20 MEQ/1,000 ML BAG IV SCH ×4 (07:29→23:31)
--- NOTE | 2019-11-09 07:35 | CT Scan Report ---
CT abd pelvis IV con only CLINICAL HISTORY: Upper abdominal pain, vomiting, history of pancreatitis COMPARISON STUDY: None. TECHNIQUE: The patient was scanned in a dynamic helical fashion during intravenous administration of 92 cc of Optiray 320 A dose lowering technique was utilized adhering to the principles of ALARA. CT DOSE: 941.56 mGycm FINDINGS: Lower chest: There is basilar atelectasis. Liver: There is hepatic steatosis. No focal masses are visualized. Gallbladder: Unremarkable. Spleen: Borderline enlarged measuring 12.3 cm Pancreas: No focal pancreatic masses are visualized. There is infiltration of the peripancreatic soft tissues. There is fluid present within the left pararenal space and left paracolic gutter. There is no evidence of pancreatic necrosis. The findings are consistent with acute interstitial pancreatitis. Adrenal glands: Unremarkable. Kidneys: There is symmetric renal cortical enhancement. The kidneys are normal in size without hydron ephrosis. Bowel: There are no transition zones indicate bowel obstruction. The appendix appears normal. There i s no acute diverticulitis. Peritoneum: There is no free air. There is a small amount of pelvic fluid. Vasculature: The abdominal aorta is normal in course and caliber. Adenopathy: None. Pelvic viscera: The bladder, and pelvic viscera are unremarkable. Skeletal structures: No destructive osseous lesions are seen. IMPRESSION: 1. No evidence of bowel obstruction. No evidence of free air 2. Normal appendix. No evidence of acute diverticulitis 3. CT evidence of acute interstitial pancreatitis. No evidence of pancreatic necrosis. 4. Hepatic steatosis and borderline splenomegaly ACT 112: Negative or not required by law. Electronically signed by: Salinas Sheffield M.D. 11/09/2019 7:34 AM
[2019-11-09] MEDS: SERTRALINE HCL 100 MG TABLET PO SCH (07:37)
[2019-11-09] MEDS: SIMVASTATIN 40 MG TAB PO SCH (07:38)
[2019-11-09] MEDS: ENOXAPARIN INJ 40 MG/0.4 ML SYR SQ SCH (07:38)
[2019-11-09] MEDS: ATENOLOL 50 MG TABLET PO SCH (07:40)
[2019-11-09] MEDS: cloNIDine HCL 0.3 MG TAB PO SCH ×2 (07:40→19:45)
[2019-11-09] MEDS: GABAPENTIN 800 MG TAB PO SCH ×3 (07:40→19:45)
[2019-11-09] MEDS: PANTOprazole 40 MG TAB PO SCH (07:40)
--- NOTE | 2019-11-09 10:41 | Gastrointestinal Consultation ---
Date of Consultation November 09, 2019 Assessment & Plan (1) Acute upper abdominal pain: (2) Recurrent acute pancreatitis: Diff dx: ETOH vs idiopathic vs autoimmune vs divisum vs medication-induced vs other. Given recent surgery, possibly this episode is related to anesthesia +/- ETOH use. I did corporate counselor the patient extensively on the dangers of ongoing alcohol use in regard to recurrent acute pancreatitis vs development of chronic pancreatitis, pancreatic necrosis etc. He declines ETOH treatment resources at this time. 1. Continue NPO for now due to severity of abdominal pain. 2. Continue IV resuscitation at 200 ml/hr. 3. Continue IV antiemetics and analgesics as prescribed. 4. Continue supportive care. Thank you for allowing us to participate in the care of this patient. If you have any questions or concerns, please do not hesitate to contact us. Supervising Physician Co-Signing Physician Notes I personally evaluated the patient and agree with the findings as documented by ROBBIE Cisneros Exam: abd: soft, diffuse severe tenderness, nd I spoke with the patient about his alcohol history and he admits to drinking 5-6 beers daily on average for the last few years, I suspect likely more. Has had several episodes of pancreatitis, 3 in the past year. Stressed the importance of alcohol cessation to prevent recurrence, he would benefit from outpatient alcohol rehab. continue NPO, aggressive IV fluids 200 cc/hr, and pain control prn. once symptoms improve can advance diet starting with low residue diet. History of Present Illness Reason for Consultation: Pancreatitis Requesting Physician: Dr. Segundo Attending Physician: Marky Rogers DO History of Present Illness Patient is a 39 year-old male with a history of acute pancreatitis admitted with acute onset of epigastric pain with associated n/v and elevated amylase/lipase as well as abnormal CT imaging consistent with acute pancreatitis. This is his third episode of pancreatitis, apparently previously treated at the [facility]. Patient states he does drink alcohol, mostly beer, but was vague with reports of quantity and frequency of use. States "I just drink on special occasions". The patient did have a positive to screen for benzodiazepine use despite not being prescribed the medication. Two days prior to arrival, he did have a thumb surgery and was prescribed opioid analgesics for pain and the tox screen did demonstrate this as well. Currently, he rates his pain as 9.5/10 in intensity with radiation in the back. + nausea but no further emesis. Labs this morning demonstrated a normal WBC of 10.19, hemoglobin 15.4, hematocrit 43.2, TB 0.6, AST 34, ALT 45, ALP 83, amylase 638, and lipase 7358. He has been placed on IV fluids at 200 ml/hr and NPO. Has been prescribed opioid analgesics and antiemetics for symptom control. Allergies Allergy/AdvReac Type Severity Reaction Status Date / Time No Known Allergies Allergy Verified 11/09/19 00:56 Home Medications Home Medications Medication Instructions Recorded Confirmed Type atenolol 50 mg PO QAM 11/06/19 11/09/19 History clonidine HCl 0.3 mg PO BID 11/06/19 11/09/19 History gabapentin 800 mg PO TID 11/06/19 11/09/19 History hydrochlorothiazide 25 mg PO QAM 11/06/19 11/09/19 History hydrocodone-acetaminophen 1 tab PO Q6H PRN 11/06/19 11/09/19 History sertraline 100 mg PO QAM 11/06/19 11/09/19 History simvastatin 40 mg PO QAM 11/06/19 11/09/19 History esomeprazole magnesium [Nexium] 40 mg PO DAILY 11/09/19 11/09/19 History Patient History Medical History Anxiety Depression GERD (gastroesophageal reflux disease) Hyperlipidemia Hypertension Peripheral neuropathy Surgical History History of colonoscopy History of discectomy LUMBAR Social History Smoking Status: Current every day smoker Cigarettes Per Day: 10; Second Hand Exposure: Yes; Hx Alcohol Use: Yes Alcohol type: beer Hx Substance Use: No Preferred Language: Salvadorean Communication Ability: Effective Substation Electrician Required: No Beliefs That Will Affect Care: None Current Living Situation: Significant Other Current Living Situation Comment: [place] Feels Safe at Home: Yes Assistive Devices: None Review of Systems Review of Systems: All systems reviewed & are unremarkable except as noted in HPI & below Physical Exam Constitutional: WD/WN, vitals as above Eyes: EOM intact bilaterally Neck: normal appearance Respiratory: normal respiratory effort, lungs clear to auscultation Cardiovascular: Rate/Rhythm: regular rate and regular rhythm Heart Sounds: no gallop and no murmur Gastrointestinal (Abdomen): Inspection/Auscultation: normal bowel sounds; abdomen not distended Percussion/Palpation: + abdomen tender (epigastric), + guarding and abdomen soft; abdomen not rigid Musculoskeletal: Extremities: extremities normal to inspection; no cyanosis no lower extremity edema Skin: no rashes, warm and dry Neurologic: moves all extremities Psychiatric: A+Ox3, euthymic affect Results & Data ([facility]) Vital Signs (Past 12 Hours) Vital Signs Temp Pulse Pulse Resp BP BP Pulse Ox 11/09/19 07:35 37.4 C 67 16 179/122 H 95 11/09/19 06:38 63 212/126 H 11/09/19 04:30 61 21 165/110 H 96 11/09/19 04:04 62 16 193/124 H 11/09/19 03:11 60 16 192/128 H 96 11/09/19 02:30 66 16 174/117 H 96 11/09/19 02:01 65 17 201/125 H 95 11/09/19 01:21 65 14 187/117 H 94 11/09/19 00:17 36.7 C 73 20 171/120 H 97 Laboratory Results Abnormal lab results 11/09/19 11/09/19 11/09/19 Range/Units 00:35 00:35 02:42 RBC 4.66 L (4.7-6.1) M/uL MPV 11.1 H (7.4-10.4) fL Neut # (Auto) 7.50 H (1.4-6.5) K/uL [place] # (Auto) 1.06 H (0.11-0.59) K/uL Potassium 3.2 L (3.5-5.1) mmol/L Total Protein 8.5 H (6.4-8.2) gm/dl Globulin 4.3 H (2.5-4.0) gm/dl Amylase 638 H (25-115) U/L Lipase 7358 H (73-393) U/L Ur Specific [place] > 1.045 H (1.000-1.030) Urine Opiates Screen (Neg) U Benzodiazepines Scrn (Neg) U Marijuana (THC) Screen (Neg) 11/09/19 Range/Units 02:42 RBC (4.7-6.1) M/uL MPV (7.4-10.4) fL Neut # (Auto) (1.4-6.5) K/uL [place] # (Auto) (0.11-0.59) K/uL Potassium (3.5-5.1) mmol/L Total Protein (6.4-8.2) gm/dl Globulin (2.5-4.0) gm/dl Amylase (25-115) U/L Lipase (73-393) U/L Ur Specific [place] (1.000-1.030) Urine Opiates Screen Pos H (Neg) U Benzodiazepines Scrn Pos H (Neg) U Marijuana (THC) Screen Pos H (Neg) PG Care Time/CCT Total # of Minutes Spent Total Time Spent with Patient: Total time spent is greater than 50% in coordination of care (as documented) at patient's floor/unit and/or counseling patient: Coding Level of Care Code 09544 Inpt Consult Level 4 Diagnoses Acute upper abdominal pain R10.10 Recurrent acute pancreatitis K85.90
[2019-11-09] MEDS ORDERED: NALOXONE HCL 0.4 MG/1 ML VIAL/CARP IV PRN (12:05)
[2019-11-09] MEDS: SODIUM CHLORIDE 0.9% 1000ML 1,000 ML IV SCH (13:48)
[2019-11-09] MEDS: HYDROmorphone PCA 30 MG/30 ML IV PRN (13:48)
[2019-11-09] MEDS: ACETAMINOPHEN 325 MG TAB PO PRN ×2 (13:51→22:18)
[2019-11-09 14:07] LABS: Hematocrit (blood only) 39.2 % (42-52); Hemoglobin 13.7 g/dL (14.0-18.0); Mean Corpuscular Hemoglobin 32.2 pg (25-34); Mean Corpuscular Hgb Conc 34.9 g/dL (32-36); Mean Corpuscular Volume 92.2 fL (80-100); Mean Platelet Volume 11.1 fL (7.4-10.4); Platelet Count 201 K/uL (130-400); RDW Coefficient of Variation 12.8 % (11.5-14.5); RDW Standard Deviation 43.3 fL (36.4-46.3); Red Blood Count 4.25 M/uL (4.7-6.1); White Blood Count 11.79 K/uL (4.8-10.8)
[2019-11-09 14:30] LABS: BUN Creatinine Ratio 11.6 (10-20); Calcium 9.3 mg/dl (8.5-10.1); Creatinine Clr Calc Pharmacy 156.4 ml/min; Est GFR (African American) 135.2; Est GFR (Non-African American) 116.7; Potassium 3.4 mmol/L (3.5-5.1)
[2019-11-09] MEDS: CEFAZOLIN 1000MG 1,000 MG/7.5 ML SYR IV SCH ×2 (14:50→21:55)
[2019-11-09] MEDS ORDERED: HydrALAZINE HCL 20 MG/ML VIAL IV STA (16:29)
--- NOTE | 2019-11-09 16:34 | History & Physical Bridge Note ---
Date of Service November 09, 2019 History & Physical Bridge Note I have examined the patient, reviewed the History & Physical and in the interval since the performance of the History & Physical I have noted the following changes of clinical significance: patient admitted this morning, acute pancreatitis severe pain, Dilaudid 1mg IV q3 not working, ordered OPERATING ROOM SCHEDULER pump, initially Dilaudid 0.2 q20 minutes, no basal dosing revisited this afternoon, still in a lot of pain, unable to rest, increased Dilaudid 0.2 q10 minutes BP markedly elevated, 200/144, Hydralazine ordered BP likely up due to severe pain increased fluids to 200mL/hr discussed with GI, appreciate their input spoke with his significant other at the bedside, she confirms that he was drinking heavily up until Wednesday night prior to his surgery Wednesday difficult to gauge if he is going through withdrawal because he is in a lot of pain, but certainly the elevated BP could be due to withdrawal need to be cautious with using Ativan since he is on Dilaudid OPERATING ROOM SCHEDULER, will monitor closely
[2019-11-09] MEDS: NICOTINE 21 MG/24 HR TDSY TD SCH (17:47)
[2019-11-10] MEDS: NSS + 20MEQ KCL 20 MEQ/1,000 ML BAG IV SCH ×5 (04:32→23:38)
[2019-11-10] MEDS: CEFAZOLIN 1000MG 1,000 MG/7.5 ML SYR IV SCH (05:10)
[2019-11-10] MEDS: DiphenhydrAMINE HCL 50 MG/ML VIAL IV PRN ×3 (05:13→20:49)
--- NOTE | 2019-11-10 05:39 | Electrocardiogram Report ---
Test Reason : Blood Pressure : / mmHG Vent. Rate : 062 BPM Atrial Rate : 062 BPM P-R Int : 200 ms QRS Dur : 082 ms QT Int : 446 ms P-R-T Axes : 024 -05 009 degrees QTc Int : 452 ms Normal sinus rhythm Normal ECG No previous ECGs available Confirmed by Tyson Car ([id number]) on 11/10/2019 5:39:30 AM Referred By: REFERRED SELF Confirmed By:Tyson Car
[2019-11-10] MEDS: HydrALAZINE HCL 20 MG/ML VIAL IV PRN ×2 (05:47→11:53)
[2019-11-10] MEDS ORDERED: LABETALOL HCL IV 5 MG/ML 20ML IV STA (06:40)
[2019-11-10 07:46] LABS: Basophils # (auto) 0.01 K/uL (0-0.2); Basophils % (auto) 0.1 %; Eosinophils # (auto) 0.06 K/uL (0-0.5); Eosinophils % (auto) 0.5 %; Hematocrit (blood only) 38.8 % (42-52); Hemoglobin 13.5 g/dL (14.0-18.0); Immature Granulocytes # (auto) 0.03 K/uL (0.00-0.02); Immature Granulocytes % (auto) 0.3 %; Lymphocytes # (auto) 0.89 K/uL (1.2-3.4); Lymphocytes % (auto) 7.4 %; Mean Corpuscular Hemoglobin 32.5 pg (25-34); Mean Corpuscular Hgb Conc 34.8 g/dL (32-36); Mean Corpuscular Volume 93.5 fL (80-100); Mean Platelet Volume 10.8 fL (7.4-10.4); Monocytes # (auto) 1.35 K/uL (0.11-0.59); Monocytes % (auto) 11.3 %; Neutrophils # (auto) 9.66 K/uL (1.4-6.5); Neutrophils % (auto) 80.4 %; Platelet Count 203 K/uL (130-400); Red Blood Count 4.15 M/uL (4.7-6.1)
[2019-11-10 08:19] LABS: Albumin Level 3.4 gm/dl (3.4-5.0); BUN Creatinine Ratio 9.1 (10-20); Calcium 9.6 mg/dl (8.5-10.1); Creatinine Clr Calc Pharmacy 187.5 ml/min; Est GFR (African American) 145.8; Est GFR (Non-African American) 125.8; Magnesium 1.8 mg/dl (1.8-2.4); Potassium 3.6 mmol/L (3.5-5.1)
[2019-11-10 08:22] LABS: Albumin Globulin Ratio 0.7 (0.9-2); Bilirubin,Total 0.7 mg/dl (0.2-1); Globulin 4.7 gm/dl (2.5-4.0); Total Protein 8.1 gm/dl (6.4-8.2)
[2019-11-10] MEDS: cloNIDine HCL 0.3 MG TAB PO SCH ×2 (08:52→20:43)
[2019-11-10] MEDS: SERTRALINE HCL 100 MG TABLET PO SCH (08:52)
[2019-11-10] MEDS: GABAPENTIN 800 MG TAB PO SCH ×3 (08:52→20:43)
[2019-11-10] MEDS: PANTOprazole 40 MG TAB PO SCH (08:52)
[2019-11-10] MEDS: ATENOLOL 50 MG TABLET PO SCH (08:53)
[2019-11-10] MEDS: ENOXAPARIN INJ 40 MG/0.4 ML SYR SQ SCH (09:05)
[2019-11-10] MEDS: NICOTINE 21 MG/24 HR TDSY TD SCH ×2 (09:10→18:00)
[2019-11-10] MEDS: SIMVASTATIN 40 MG TAB PO SCH (09:11)
[2019-11-10] MEDS: HYDROmorphone PCA 30 MG/30 ML IV PRN ×2 (09:24→14:42)
--- NOTE | 2019-11-10 10:00 | Gastroenterology Progress Note ---
Date of Service November 10, 2019 Assessment & Plan (1) Acute upper abdominal pain: (2) Recurrent acute pancreatitis: Diff dx: ETOH vs idiopathic vs autoimmune vs divisum vs medication-induced vs other. Given recent surgery, possibly this episode is related to anesthesia +/- ETOH use. I did direct care counselor the patient extensively on the dangers of ongoing alcohol use in regard to recurrent acute pancreatitis vs development of chronic pancreatitis, pancreatic necrosis etc. He declines ETOH treatment resources at this time. 1. Continue NPO for now due to severity of abdominal pain. Discussed with Dr. Rogers. Repeat CT imaging has been ordered for further evaluation. Await testing. 2. Continue IV resuscitation at 200 ml/hr. 3. Continue IV antiemetics and analgesics as prescribed. 4. Continue supportive care. 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 At this time I would recommend surgical consultation for further evaluation (possible splenectomy) of the splenic vein thrombosis. He will need repeat CT imaging in 8 weeks to assess the fluid collections, which if persistent and walled off at that time would require an EUS with axios stent possibly. continue IVFs and NPO for now. Subjective Patient with reports of uncontrolled abdominal pain despite the Dilaudid ENVIRONMENTAL REMEDIATION CONSULTANT. Pain is located in the epigastric region stating "it's a 12" on a 0-10 scale. +nausea but no vomiting. Remains NPO. Despite pain, his lipase is trending down and was noted to be 1300 today. Review of Systems Constitutional: no fever and no chills Respiratory: no cough and no dyspnea Cardiovascular: no chest pain and no dyspnea on exertion Gastrointestinal: as per Subjective / HPI Physical Exam Constitutional: WD/WN, vitals as above Neck: normal visual inspection Respiratory: normal respiratory effort, lungs clear to auscultation Cardiovascular: Rate/Rhythm: regular rate and regular rhythm Gastrointestinal (Abdomen): Inspection/Auscultation: abdomen normal to inspection Percussion/Palpation: + abdomen tender (even with auscultation), + guarding and abdomen soft Psychiatric: A+Ox3, euthymic affect Results & Data Results & Data ([facility]) Vital Signs (Past 12 Hours) Vital Signs Temp Pulse Pulse Resp BP Pulse Ox 11/10/19 07:58 37.4 C 98 H 16 164/107 H 92 11/10/19 07:38 94 H 11/10/19 06:32 180/110 H 11/10/19 04:25 98 H 11/10/19 03:21 37.2 C 86 18 177/106 H 92 11/09/19 22:17 38.2 C H 96 H 20 168/105 H 92 Laboratory Results Abnormal lab results 11/09/19 11/09/19 11/10/19 Range/Units 13:47 13:47 07:33 WBC 11.79 H 12.00 H (4.8-10.8) K/uL RBC 4.25 L 4.15 L (4.7-6.1) M/uL Hgb 13.7 L 13.5 L (14.0-18.0) g/dL Hct 39.2 L 38.8 L (42-52) % MPV 11.1 H 10.8 H (7.4-10.4) fL Neut # (Auto) 9.66 H (1.4-6.5) K/uL Lymph # (Auto) 0.89 L (1.2-3.4) K/uL [place] # (Auto) 1.35 H (0.11-0.59) K/uL Immature Gran # (Auto) 0.03 H (0.00-0.02) K/uL Sodium 135 L (136-145) mmol/L Potassium 3.4 L (3.5-5.1) mmol/L BUN (7-18) mg/dl BUN/Creatinine Ratio (10-20) Globulin (2.5-4.0) gm/dl Albumin/Globulin Ratio (0.9-2) Lipase 2898 H (73-393) U/L 11/10/19 Range/Units 07:33 WBC (4.8-10.8) K/uL RBC (4.7-6.1) M/uL Hgb (14.0-18.0) g/dL Hct (42-52) % MPV (7.4-10.4) fL Neut # (Auto) (1.4-6.5) K/uL Lymph # (Auto) (1.2-3.4) K/uL [place] # (Auto) (0.11-0.59) K/uL Immature Gran # (Auto) (0.00-0.02) K/uL Sodium 134 L (136-145) mmol/L Potassium (3.5-5.1) mmol/L BUN 6 L (7-18) mg/dl BUN/Creatinine Ratio 9.1 L (10-20) Globulin 4.7 H (2.5-4.0) gm/dl Albumin/Globulin Ratio 0.7 L (0.9-2) Lipase 1300 H (73-393) U/L PG Care Time/CCT Total # of Minutes Spent Total Time Spent with Patient: Total time spent is greater than 50% in coordination of care (as documented) at patient's floor/unit and/or counseling patient: Coding Level of Care Code 37705 Subseq Hosp Care Lvl 2 Diagnoses Acute upper abdominal pain R10.10 Recurrent acute pancreatitis K85.90
[2019-11-10] MEDS ORDERED: IOVERSOL 100ml IV ONE (11:28)
--- NOTE | 2019-11-10 11:53 | CT Scan Report ---
CT OF THE ABDOMEN AND PELVIS WITH CONTRAST CLINICAL HISTORY: Pancreatitis, worsening pain, necrosis? COMPARISON STUDY: CT of the abdomen and pelvis November 09, 2019. TECHNIQUE: Following IV administration of 94 mL of Optiray-320, axial images of the abdomen and pelvi s were obtained from the lung bases to the proximal femurs. Images were reviewed in the axial, sagitt al, and coronal planes. IV contrast was administered without complication. Automated exposure contro l was utilized for the study. A dose lowering technique was utilized adhering to the principles of A EUSEBIO. CT DOSE: 965.66 mGycm FINDINGS: Imaged portions of the lower chest demonstrate trace bilateral pleural effusions with assoc iated atelectasis. No pneumatosis, free air or portal venous gas is present. There is hyperdense mate rial within the gallbladder. There is fatty infiltration of the liver. No biliary or pancreatic ducta l dilatation is present. The spleen, adrenal glands and kidneys are normal. There is no hydronephrosi s. There has been interval development of several small hypoenhancing foci within the pancreatic body that measure up to 1.3 cm. There is no pancreatic ductal dilatation. The amount of peripancreatic fl uid and infiltration has decreased since CT of November 09, 2019. Is no soft tissue gas. There is proba ble nonocclusive thrombus within the splenic vein on axial image 156 which is new since prior examina tion. There is no evidence for a bowel obstruction. The appendix is normal. A small amount of ascites within the pelvis is noted. There are no suspicious osseous lesions. IMPRESSION: 1. Interval development of a few small hypoenhancing foci within the pancreatic body. These could sim ply represent edema however early developing necrosis could appear similar. Interval decrease in per ipancreatic infiltration and fluid. No peripancreatic fluid collection. No soft tissue gas. 2. Interval development of probable small amount of nonocclusive splenic vein thrombus. 3. Hyperdense material within the gallbladder. ACT 112: Negative or not required by law. Electronically signed by: Ace Mehta M.D. 11/10/2019 11:52 AM
[2019-11-10] MEDS ORDERED: PIPERACILL/TAZOBAC CONSULT ACTIVE PRN (12:11)
[2019-11-10] MEDS ORDERED: PIPERACILLIN/TAZOBACTAM 4.5 GM in DEXTROSE 5% 100 ML IV ONE (12:30)
--- NOTE | 2019-11-10 12:58 | Hospitalist Progress Note ---
Date of Service November 10, 2019 Assessment & Plan (1) Recurrent acute pancreatitis: By history of patient and significant other, this is his third episode within the past few months. due to excessive alcohol intake, drinking heavily up until morning of 11/05, history of heavy alcohol abuse Amylase 638, lipase 7358 with normal LFTs at time of admission CT abdomen pelvis consistent with acute pancreatitis, without suggestion of chronic pancreatitis or pseudocyst. Unable to do MRCP due to presence of metal in his recently surgerized right thumb. continue NSS at 200cc/hr pain is very severe, required ASSISTANT FILM EDITOR yesterday, increase slightly to 0.3mg IV q10 minutes Lipase down to 1300, BUN trending down which is good not making much urine so likely with fluid sequestration CT abdomen/pelvis repeated today due to severe pain, not getting better possible early necrosis? start on Zosyn for 7 days some non-occlusive splenic vein thrombosis also seen, will ask surgery to see patient per GI recommendations repeat labs tomorrow, continue fluids at 200mL/hr, keep NPO discussed with patient that he will be here well into next week (2) Anxiety: Continue sertraline and gabapentin. (3) Depression: See above (4) Peripheral neuropathy: Continue gabapentin (5) Hypertension: Continue atenolol and clonidine BP better today with pain control and rest continue to monitor on tele (6) Hyperlipidemia: Continue simvastatin (7) GERD (gastroesophageal reflux disease): Continue Nexium or substitute pantoprazole (8) Alcohol use disorder: Patient is not showing any signs of withdrawal at this point, however alcohol level was normal in the ED, suggesting that he may need to be placed on AWSS protocol. Urine drug screen was positive for opiates (of which he is prescribed hydrocodone), benzodiazepines (which is not on his med list) and marijuana. no current signs of withdrawal, hesitant to use any benzodiazepine with the amount of Dilaudid he is requiring for his pain Admission and Anticipated Discharge Date Admission Date: November 09, 2019 Subjective patient with more pain this morning, not getting rest, I increased ASSISTANT FILM EDITOR to 0.[address] this morning with possible small foci of early necrosis discussed with Dr. Arreola with GI, he is not too concerned about the fluid collections, recommends repeat CT in 8 weeks he is concerned about the splenic vein thrombosis, recommends surgical consult, placed today reviewed labs, lipase down to 1300, LFT normal, BUN going down which is a good thing however, he is not making much urine, urine is dark, likely sequestering fluids updated his significant other at the bedside Review of Systems Review of Systems: All systems reviewed & are unremarkable except as noted in Subjective Constitutional: + fatigue and + weakness; no fever, no chills and no sweats Respiratory: no cough and no dyspnea Cardiovascular: no chest pain Gastrointestinal: + abdominal pain (severe, epigastric) and + constipation; no nausea, no vomiting and no diarrhea/loose stools Physical Exam Constitutional: well nourished, + ill appearing and + in distress; + uncomfortable Eyes: PERRL, conjunctivae normal, anicteric sclerae ENMT: external ear and nose normal, oropharynx normal Neck: trachea midline, no thyromegaly Respiratory: normal respiratory effort, lungs clear to auscultation Cardiovascular: RRR, no murmur, no edema Gastrointestinal (Abdomen): Inspection/Auscultation: abdomen normal to inspection and normal bowel sounds; abdomen not distended Percussion/Palpation: + abdomen tender (very tender in epigastric region), abdomen soft and + tympanic to percussion; no guarding, abdomen not rigid and no ascites Musculoskeletal: no cyanosis or clubbing, extremities motor strength 5/5 (right thumb in cast, recent surgery) Skin: no rashes, warm and dry Neurologic: patellar DTR's 2+ bilat, sensation intact and PERRL, EOMI, accommodation nl, no face palsy, no dysarthria Psychiatric: A+Ox3, euthymic affect Lymphatic: no cervical or axillary lymphadenopathy Results & Data Results & Data ([facility]) Vital Signs (Past 12 Hours) Vital Signs Temp Pulse Pulse Resp BP Pulse Ox 11/10/19 11:16 37.1 C 78 16 179/114 H 94 11/10/19 07:58 37.4 C 98 H 16 164/107 H 92 11/10/19 07:38 94 H 11/10/19 06:32 180/110 H 11/10/19 04:25 98 H 11/10/19 03:21 37.2 C 86 18 177/106 H 92 Laboratory Results Laboratory Results - last 24 hr 11/10/19 11/10/19 07:33 07:33 WBC 12.00 H RBC 4.15 L Hgb 13.5 L Hct 38.8 L MCV 93.5 MCH 32.5 MCHC 34.8 RDW Std Deviation 45.0 RDW Coeff of Nehemias 13.0 Plt Count 203 MPV 10.8 H Immature Gran % (Auto) 0.3 Neut % (Auto) 80.4 Lymph % (Auto) 7.4 [place] % (Auto) 11.3 Eos % (Auto) 0.5 Baso % (Auto) 0.1 Neut # (Auto) 9.66 H Lymph # (Auto) 0.89 L [place] # (Auto) 1.35 H Eos # (Auto) 0.06 Baso # (Auto) 0.01 Immature Gran # (Auto) 0.03 H Sodium 134 L Potassium 3.6 Chloride 101 Carbon Dioxide 23 Anion Gap 10.0 BUN 6 L Creatinine 0.60 Est Cr Clr Drug Dosing 187.5 Est GFR ( Amer) 145.8 Est GFR (Non-Af Amer) 125.8 BUN/Creatinine Ratio 9.1 L Glucose 96 Calcium 9.6 Magnesium 1.8 Total Bilirubin 0.7 AST 22 ALT 27 Alkaline Phosphatase 70 Total Protein 8.1 Albumin 3.4 Globulin 4.7 H Albumin/Globulin Ratio 0.7 L Lipase [address] abdomen/pelvis with IV contrast 1. Interval development of a few small hypoenhancing foci within the pancreatic body. These could simply represent edema however early developing necrosis could appear similar. Interval decrease in peripancreatic infiltration and fluid. No peripancreatic fluid collection. No soft tissue gas. 2. Interval development of probable small amount of nonocclusive splenic vein thrombus. 3. Hyperdense material within the gallbladder. Medications Administered Current Inpatient Medications Acetaminophen (Acetaminophen 325 Mg Tab) 650 mg PO Q4H PRN PRN Reason: Pain or Fever Stop: 12/09/19 06:23 Last Admin: 11/09/19 22:18 Dose: 650 mg Documented by: Hydrocodone Bitart/Acetaminophen (Hydrocodone/Acetamophen 5/325mg Tab) 1 tab PO Q6H PRN PRN Reason: Moderate Pain Stop: 11/23/19 06:28 Al Hydrox/Mg Hydrox/Simethicone (Aluminum/Magnesium Susp 30 Ml Udc) 15 ml PO Q4H PRN PRN Reason: Dyspepsia Stop: 12/09/19 06:23 Atenolol (Atenolol 50 Mg Tablet) 50 mg PO [facility] Stop: 12/09/19 08:59 Last Admin: 11/10/19 08:53 Dose: 50 mg Documented by: Clonidine HCl (Clonidine Hcl 0.3 Mg Tab) 0.3 mg PO BID CANDICE Stop: 12/09/19 08:59 Last Admin: 11/10/19 08:52 Dose: 0.3 mg Documented by: Diphenhydramine HCl (Diphenhydramine Hcl 50 Mg/Ml Vial) 25 mg IV Q3H PRN PRN Reason: Moderate Pain Stop: 12/09/19 06:23 Last Admin: 11/10/19 08:48 Dose: 25 mg Documented by: Enoxaparin Sodium (Enoxaparin Inj 40 Mg/0.4 Ml Syr) 40 mg SQ Q24H CANDICE Stop: 12/09/19 08:59 Last Admin: 11/10/19 09:05 Dose: Not Given Documented by: Gabapentin (Gabapentin 800 Mg Tab) 800 mg PO TID CANDICE Stop: 12/09/19 08:59 Last Admin: 11/10/19 14:23 Dose: 800 mg Documented by: Hydralazine HCl (Hydralazine Hcl 20 Mg/Ml Vial) 10 mg IV Q4H PRN PRN Reason: Blood Pressure - High Stop: 12/09/19 06:23 Last Admin: 11/10/19 11:53 Dose: 10 mg Documented by: Hydromorphone HCl (Hydromorphone Academic Dean 30 Mg/30 Ml) 30 mg IV PRN PRN; Protocol PRN Reason: ASSISTANT FILM EDITOR Pain Titration Stop: 11/23/19 12:04 Last Admin: 11/10/19 14:42 Dose: 30 mg Documented by: Potassium Chloride/Sodium Chloride (Normal Saline W/20 Meq Kcl) 20 meq in 1,000 mls @ 200 mls/hr IV .Q5H CANDICE Stop: 12/09/19 06:23 Last Admin: 11/10/19 14:26 Dose: 200 mls/hr Documented by: Sodium Chloride (Nss 1000ml) 1,000 mls @ 15 mls/hr IV .Q24H CANDICE Stop: 11/23/19 12:06 Last Admin: 11/10/19 14:25 Dose: 15 mls/hr Documented by: Piperacillin Sod/Tazobactam (Sod 3.375 gm/ Dextrose) 115 mls @ 28.75 mls/hr IV Q8H CANDICE; Protocol Stop: 11/20/19 17:59 Magnesium Hydroxide (Magnesium Hydroxide Susp 30 Ml Udc) 30 ml PO Q12H PRN PRN Reason: Constipation Stop: 12/09/19 06:23 Miscellaneous (Remove Nicoderm Patch) 1 ea N/A DAILY@0859 [facility] Stop: 12/09/19 17:28 Last Admin: 11/10/19 09:10 Dose: 1 ea Documented by: Miscellaneous Information (Piperacill/Tazobac Consult Active) 1 ea N/A UD PRN PRN Reason: Consult Stop: 12/10/19 12:10 Naloxone HCl (Naloxone Hcl 0.4 Mg/1 Ml Vial/Carp) 0.1 mg IV Q5M PRN; Protocol PRN Reason: Oversedation/Resp Depression Stop: 11/23/19 12:04 Nicotine (Nicotine 21 Mg/24 Hr Tdsy) 21 mg TD QAM [facility] Stop: 12/09/19 17:29 Last Admin: 11/10/19 09:10 Dose: Not Given Documented by: Ondansetron HCl (Ondansetron Inj 2 Mg/Ml 2 Ml Vial) 4 mg IV Q6H PRN PRN Reason: Nausea Stop: 12/09/19 06:23 Last Admin: 11/09/19 17:46 Dose: 4 mg Documented by: Pantoprazole Sodium (Pantoprazole 40 Mg Tab) 40 mg PO DAILY [facility] Stop: 12/09/19 08:59 Last Admin: 11/10/19 08:52 Dose: 40 mg Documented by: Sertraline HCl (Sertraline Hcl 100 Mg Tablet) 100 mg PO QAM [facility] Stop: 12/09/19 08:59 Last Admin: 11/10/19 08:52 Dose: 100 mg Documented by: Simvastatin (Simvastatin 40 Mg Tab) 40 mg PO QAM [facility] Stop: 12/09/19 08:59 Last Admin: 11/10/19 09:11 Dose: Not Given Documented by: PG Care Time/CCT Total # of Minutes Spent Total Time Spent with Patient: Total time spent is greater than 50% in coordination of care (as documented) at patient's floor/unit and/or counseling patient: Coding Level of Care Code 88679 Subseq Hosp Care Lvl 3 Diagnoses Recurrent acute pancreatitis K85.90 Anxiety F41.9 Depression F32.9 Peripheral neuropathy G62.9 Hypertension I10 Hyperlipidemia E78.5 GERD (gastroesophageal reflux disease) K21.9 Alcohol use disorder
[2019-11-10] MEDS: SODIUM CHLORIDE 0.9% 1000ML 1,000 ML IV SCH (14:25)
--- NOTE | 2019-11-10 16:38 | Surgery Consultation ---
Date of Consultation November 10, 2019 Assessment & Plan (1) Acute pancreatitis: Continue conservative management of pancreatitis. Lipase is improving, although repeat CT shows edema/early necrosis. Splenic thrombus is not an issue at this time. He is on Lovenox for DVT prophylaxis. Dr. Dick-there is no plan for splenectomy in this situation-his splenic vein thrombus is very small and nonocclusive in the etiology His most likely his pancreatitis. I believe his pain is coming from the rodgers creatitis and is not related to the splenic vein thrombus. There is no specific treatment for this from my's perspective unless at some point interventional radiology may have something to offer. If this were to worsen and create complete thrombosis he may develop gastric varices can be related to portal hypertension Again there is no plan for any surgical intervention History of Present Illness Attending Physician: Marky Rogers DO History of Present Illness 39 y/o male with 5th or 6th episode of pancreatitis, alcohol related. Pain started on Wednesday the day after surgery for thumb fracture and he was admitted yesterday. 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 No flatus, no nausea, or back pain. Repeat CT today showed small nonocclusive splenic vein thrombus. We were asked to see him. Allergies Allergy/AdvReac Type Severity Reaction Status Date / Time No Known Allergies Allergy Verified 11/09/19 00:56 Home Medications Home Medications Medication Instructions Recorded Confirmed Type atenolol 50 mg PO QAM 11/06/19 11/09/19 History clonidine HCl 0.3 mg PO BID 11/06/19 11/09/19 History gabapentin 800 mg PO TID 11/06/19 11/09/19 History hydrochlorothiazide 25 mg PO QAM 11/06/19 11/09/19 History hydrocodone-acetaminophen 1 tab PO Q6H PRN 11/06/19 11/09/19 History sertraline 100 mg PO QAM 11/06/19 11/09/19 History simvastatin 40 mg PO QAM 11/06/19 11/09/19 History esomeprazole magnesium [Nexium] 40 mg PO DAILY 11/09/19 11/09/19 History Patient History Medical History Anxiety Depression GERD (gastroesophageal reflux disease) Hyperlipidemia Hypertension Peripheral neuropathy Surgical History History of colonoscopy History of discectomy LUMBAR Social History Smoking Status: Current every day smoker Cigarettes Per Day: 10; Second Hand Exposure: Yes; Hx Alcohol Use: Yes Alcohol type: beer Hx Substance Use: No Preferred Language: [place] Communication Ability: Effective In Store Banker Required: No Beliefs That Will Affect Care: None Current Living Situation: Significant Other Current Living Situation Comment: [place] Feels Safe at Home: Yes Assistive Devices: None Review of Systems Constitutional: + anorexia; no fever and no chills Gastrointestinal: + abdominal pain and + bloating; no nausea and no vomiting Physical Exam Constitutional: + uncomfortable Respiratory: normal respiratory effort, lungs clear to auscultation Gastrointestinal (Abdomen): Inspection/Auscultation: + abdomen distended Percussion/Palpation: + abdomen tender and abdomen soft Results & Data ([facility]) Vital Signs (Past 12 Hours) Vital Signs Temp Pulse Pulse Resp BP Pulse Ox 11/10/19 16:30 36.8 C 76 20 156/99 H 92 11/10/19 16:00 78 11/10/19 11:16 37.1 C 78 16 179/114 H 94 11/10/19 07:58 37.4 C 98 H 16 164/107 H 92 11/10/19 07:38 94 H 11/10/19 06:32 180/110 H PG Care Time/CCT Total # of Minutes Spent Total Time Spent with Patient: Total time spent is greater than 50% in coordination of care (as documented) at patient's floor/unit and/or counseling patient: Coding Level of Care Code 31045 Inpt Consult Level 2 Diagnoses Acute pancreatitis K85.90
[2019-11-10] MEDS: PIPERACILLIN/TAZOBACTAM 3.375 GM in DEXTROSE 5% 100 ML IV SCH (18:58)
[2019-11-11] MEDS: PIPERACILLIN/TAZOBACTAM 3.375 GM in DEXTROSE 5% 100 ML IV SCH ×3 (01:20→18:42)
[2019-11-11] MEDS: NSS + 20MEQ KCL 20 MEQ/1,000 ML BAG IV SCH (04:53)
[2019-11-11 05:59] LABS: Basophils # (auto) 0.01 K/uL (0-0.2); Basophils % (auto) 0.1 %; Eosinophils # (auto) 0.24 K/uL (0-0.5); Eosinophils % (auto) 2.7 %; Hematocrit (blood only) 36.5 % (42-52); Hemoglobin 12.3 g/dL (14.0-18.0); Immature Granulocytes # (auto) 0.03 K/uL (0.00-0.02); Immature Granulocytes % (auto) 0.3 %; Lymphocytes # (auto) 0.97 K/uL (1.2-3.4); Lymphocytes % (auto) 10.9 %; Mean Corpuscular Hemoglobin 31.9 pg (25-34); Mean Corpuscular Hgb Conc 33.7 g/dL (32-36); Mean Corpuscular Volume 94.6 fL (80-100); Monocytes # (auto) 0.91 K/uL (0.11-0.59); Monocytes % (auto) 10.3 %; Neutrophils % (auto) 75.7 %; Platelet Count 195 K/uL (130-400); RDW Coefficient of Variation 13.3 % (11.5-14.5); RDW Standard Deviation 45.9 fL (36.4-46.3); Red Blood Count 3.86 M/uL (4.7-6.1); White Blood Count 8.86 K/uL (4.8-10.8)
[2019-11-11 06:30] LABS: Albumin Globulin Ratio 0.6 (0.9-2); BUN Creatinine Ratio 9.4 (10-20); Bilirubin,Total 0.6 mg/dl (0.2-1); Creatinine Clr Calc Pharmacy 160.2 ml/min; Est GFR (African American) 136.8; Globulin 4.7 gm/dl (2.5-4.0); Magnesium 2.1 mg/dl (1.8-2.4); Potassium 3.8 mmol/L (3.5-5.1); Total Protein 7.7 gm/dl (6.4-8.2)
[2019-11-11] MEDS: DiphenhydrAMINE HCL 50 MG/ML VIAL IV PRN ×2 (06:33→20:34)
--- NOTE | 2019-11-11 06:41 | Surgery Progress Note ---
Date of Service November 11, 2019 Assessment & Plan (1) Acute pancreatitis: Acute pancreatitis with some fluid accumulation and evidence of possible nonobstructive thrombus in the splenic vein This is likely from inflammation of the pancreas and not a blood disorder There is no indication for surgical intervention Patient may need eventual radiology or endoscopic decompression of a pseudocyst if it forms Continued management up to the GI team and medical team We will sign off at this time Admission and Anticipated Discharge Date Admission Date: November 09, 2019 Subjective Patient's vital signs are stable He says he wants to go home He has some pain but no emesis Physical Exam Physical Exam: He is not distended Constitutional: no acute distress Eyes: + anicteric sclerae Respiratory: no respiratory distress Cardiovascular: Rate/Rhythm: regular rate Musculoskeletal: Head/Neck/Chest: head atraumatic Neurologic: awake Psychiatric: Orientation: alert Results & Data ([facility]) Vital Signs (Past 12 Hours) Vital Signs Temp Pulse Pulse Resp BP Pulse Ox 11/11/19 03:58 37.1 C 69 16 162/98 H 95 11/11/19 01:26 77 11/10/19 23:22 37.2 C 71 18 130/80 94 11/10/19 20:00 36.9 C 70 20 145/89 H 94 PG Care Time/CCT Total # of Minutes Spent Total Time Spent with Patient: Total time spent is greater than 50% in coord ination of care (as documented) at patient's floor/unit and/or counseling patient: Coding Level of Care Code 51067 Inpt Consult Level 3 Diagnoses Acute pancreatitis K85.90
[2019-11-11 07:00] LABS: 7-Aminoclonaz, Confirm NEGATIVE ng/mL (<25); Codeine Urine NEGATIVE ng/mL (<50); Hydro-Alp Ur, GC/MS NEGATIVE ng/mL (<25); Hydrocodone Urine 138 ng/mL (<50); Hydromor Urine NEGATIVE ng/mL (<50); Hydroxyethylflurazepam, Conf NEGATIVE ng/mL (<50); Hydroxymidazolam Ur, GC/MS NEGATIVE ng/mL (<50); Hydroxytriazolam NEGATIVE ng/mL (<50); Lorazepam, Ur GC/MS 1330 ng/mL (<50); Marijuana Quant, GCMS Urine 115 ng/mL (<5); Morphine Urine 1510 ng/mL (<50); Nordiazepam, Confirm NEGATIVE ng/mL (<50); Norhydrocodone Conf Ur NEGATIVE ng/mL (<50); Noroxycodone Urine 4610 ng/mL (<50); Oxazepam Ur, GC/MS NEGATIVE ng/mL (<50); Oxycodone Urine 4320 ng/mL (<50); Oxymorph Urine 1160 ng/mL (<50); Temazepam, Confirm NEGATIVE ng/mL (<50)
[2019-11-11] MEDS: ATENOLOL 50 MG TABLET PO SCH (08:41)
[2019-11-11] MEDS: GABAPENTIN 800 MG TAB PO SCH ×3 (08:41→20:34)
[2019-11-11] MEDS: SERTRALINE HCL 100 MG TABLET PO SCH (08:42)
[2019-11-11] MEDS: PANTOprazole 40 MG TAB PO SCH (08:42)
[2019-11-11] MEDS: SIMVASTATIN 40 MG TAB PO SCH (08:42)
[2019-11-11] MEDS: cloNIDine HCL 0.3 MG TAB PO SCH ×2 (08:43→20:34)
[2019-11-11] MEDS: ENOXAPARIN INJ 40 MG/0.4 ML SYR SQ SCH (08:43)
[2019-11-11] MEDS: NICOTINE 21 MG/24 HR TDSY TD SCH (08:45)
--- NOTE | 2019-11-11 09:07 | Hospitalist Progress Note ---
Date of Service November 11, 2019 Assessment & Plan (1) Recurrent acute pancreatitis: By history of patient and significant other, this is his third episode within the past few months. due to excessive alcohol intake, drinking heavily up until morning of 11/05, history of heavy alcohol abuse Amylase 638, lipase 7358 with normal LFTs at time of admission CT abdomen pelvis consistent with acute pancreatitis, without suggestion of chronic pancreatitis or pseudocyst. Unable to do MRCP due to presence of metal in his recently surgerized right thumb. treated with NSS at 200cc/hr, will stop today pain was very severe, required GENDER STUDIES PROFESSOR yesterday, now pain is better, will stop GENDER STUDIES PROFESSOR, use Dilaudid PRN allow clear liquid diet today Lipase down to 570, BUN stable which is good sign making more urine today CT abdomen/pelvis repeated 11/09 due to severe pain, not getting better possible early necrosis? start on Zosyn for [address] 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 (3) Depression: See above (4) Peripheral neuropathy: Continue gabapentin (5) Hypertension: Continue atenolol and clonidine BP better today with pain control and rest stop tele monitor today (6) Hyperlipidemia: Continue simvastatin (7) GERD (gastroesophageal reflux disease): pantoprazole (8) Alcohol use disorder: Patient is not showing any signs of withdrawal at this point, however alcohol level was normal in the ED, suggesting that he may need to be placed on AWSS protocol. Urine drug screen was positive for opiates (of which he is prescribed hydrocodone), benzodiazepines (which is not on his med list) and marijuana. no current signs of withdrawal, hesitant to use any benzodiazepine with the am ount of Dilaudid he is requiring for his pain Admission and Anticipated Discharge Date Admission Date: November 09, 2019 Subjective patient is feeling better, far less pain, he is hungry, really wants something to eat and drink told RN that if he cannot eat he just wants to go home discussed with him that we need to start his diet slow and advance slowly, he had severe pancreatitis reviewed labs, lipase down to 570, LFT normal, BUN low, CBC stable by all accounts he is improving will stop fluids, stop GENDER STUDIES PROFESSOR and allow clear liquid diet today, told him that I want him to stay all weekend he agrees with the plan no fever/chills, no dyspnea, no chest pain, no nausea/vomiting, no BM but he has not been eating discussed plan with RN appreciate input from general surgery about splenic vein thrombosis Review of Systems Review of Systems: All systems reviewed & are unremarkable except as noted in Subjective Physical Exam Constitutional: well nourished, + ill appearing and + in distress; + uncomfortable Eyes: PERRL, conjunctivae normal, anicteric sclerae ENMT: external ear and nose normal, oropharynx normal Neck: trachea midline, no thyromegaly Respiratory: normal respiratory effort, lungs clear to auscultation Cardiovascular: RRR, no murmur, no edema Gastrointestinal (Abdomen): Inspection/Auscultation: abdomen normal to inspection and normal bowel sounds; abdomen not distended Percussion/Palpation: + abdomen tender (minimal pain in epigastric region), abdomen soft and + tympanic to percussion; no guarding, abdomen not rigid and no ascites Musculoskeletal: no cyanosis or clubbing, extremities motor strength 5/5 (right thumb in cast, recent surgery) Skin: no rashes, warm and dry Neurologic: patellar DTR's 2+ bilat, sensation intact and PERRL, EOMI, accommodation nl, no face palsy, no dysarthria Psychiatric: A+Ox3, euthymic affect Lymphatic: no cervical or axillary lymphadenopathy Results & Data Results & Data ([facility]) Vital Signs (Past 12 Hours) Vital Signs Temp Pulse Pulse Resp BP Pulse Ox 11/11/19 08:05 36.9 C 73 18 148/102 H 93 11/11/19 07:14 82 11/11/19 03:58 37.1 C 69 16 162/98 H 95 11/11/19 01:26 77 11/10/19 23:22 37.2 C 71 18 130/80 94 Laboratory Results Laboratory Results - last 24 hr 11/09/19 11/11/19 11/11/19 02:42 05:44 05:44 WBC 8.86 RBC 3.86 L Hgb 12.3 L Hct 36.5 L MCV 94.6 MCH 31.9 MCHC 33.7 RDW Std Deviation 45.9 RDW Coeff of Nehemias 13.3 Plt Count 195 MPV 11.0 H Immature Gran % (Auto) 0.3 Neut % (Auto) 75.7 Lymph % (Auto) 10.9 Thomas % (Auto) 10.3 Eos % (Auto) 2.7 Baso % (Auto) 0.1 Neut # (Auto) 6.70 H Lymph # (Auto) 0.97 L Thomas # (Auto) 0.91 H Eos # (Auto) 0.24 Baso # (Auto) 0.01 Immature Gran # (Auto) 0.03 H Sodium 135 L Potassium 3.8 Chloride 106 Carbon Dioxide 25 Anion Gap 4.0 BUN 7 Creatinine 0.70 Est Cr Clr Drug Dosing 160.2 Est GFR ( Amer) 136.8 Est GFR (Non-Af Amer) 118.0 BUN/Creatinine Ratio 9.4 L Glucose 137 H Calcium 9.0 Magnesium 2.1 Total Bilirubin 0.6 AST 32 ALT 29 Alkaline Phosphatase 91 Total Protein 7.7 Albumin 3.0 L Globulin 4.7 H Albumin/Globulin Ratio 0.6 L Lipase 572 H U Codeine Confrm GC/MS NEGATIVE Ur Morphine (GC/MS) 1510 H Ur Hydrocodone (GC/MS) 138 H Ur Norhydrocodone NEGATIVE Ur Noroxycodone 4610 H Urine Oxycodone (GC/MS) 4320 H U Oxymorphone GC/MS 1160 H Ur Hydromorphone (GC/MS) NEGATIVE U OH-Alprazolam Confrm NEGATIVE 7-Amino Clonazepam NEGATIVE Ur Nordiazepam Confirm NEGATIVE U OH-ethylflurazepam NEGATIVE U Lorazepam Cnf GC/MS 1330 H U Oxazepam Confm GC/MS NEGATIVE Ur Temazepam Confirm NEGATIVE U OH-Triazolam Confirm NEGATIVE U OH-Midazolam Confirm NEGATIVE U Marijuana THC Carboxy 115 H Drug Screen Comment SEE NOTE Medications Administered Current Inpatient Medications Acetaminophen (Acetaminophen 325 Mg Tab) 650 mg PO Q4H PRN PRN Reason: Pain or Fever Stop: 12/09/19 06:23 Last Admin: 11/09/19 22:18 Dose: 650 mg Documented by: Hydrocodone Bitart/Acetaminophen (Hydrocodone/Acetamophen 5/325mg Tab) 1 tab PO Q6H PRN PRN Reason: Moderate Pain Stop: 11/23/19 06:28 Al Hydrox/Mg Hydrox/Simethicone (Aluminum/Magnesium Susp 30 Ml Udc) 15 ml PO Q4H PRN PRN Reason: Dyspepsia Stop: 12/09/19 06:23 Atenolol (Atenolol 50 Mg Tablet) 50 mg PO QAM [facility] Stop: 12/09/19 08:59 Last Admin: 11/11/19 08:41 Dose: 50 mg Documented by: Clonidine HCl (Clonidine Hcl 0.3 Mg Tab) 0.3 mg PO BID [facility] Stop: 12/09/19 08:59 Last Admin: 11/11/19 08:43 Dose: 0.3 mg Documented by: Diphenhydramine HCl (Diphenhydramine Hcl 50 Mg/Ml Vial) 25 mg IV Q3H PRN PRN Reason: Moderate Pain Stop: 12/09/19 06:23 Last Admin: 11/11/19 06:33 Dose: 25 mg Documented by: Enoxaparin Sodium (Enoxaparin Inj 40 Mg/0.4 Ml Syr) 40 mg SQ Q24H [facility] Stop: 12/09/19 08:59 Last Admin: 11/11/19 08:43 Dose: Not Given Documented by: Gabapentin (Gabapentin 800 Mg Tab) 800 mg PO TID [facility] Stop: 12/09/19 08:59 Last Admin: 11/11/19 08:41 Dose: 800 mg Documented by: Hydralazine HCl (Hydralazine Hcl 20 Mg/Ml Vial) 10 mg IV Q4H PRN PRN Reason: Blood Pressure - High Stop: 12/09/19 06:23 Last Admin: 11/10/19 11:53 Dose: 10 mg Documented by: Hydromorphone HCl (Hydromorphone Inj 1 Mg/Ml Syringe) 1 mg IV Q4H PRN PRN Reason: Pain Stop: 11/25/19 08:58 Sodium Chloride (Nss 1000ml) 1,000 mls @ 15 mls/hr IV .Q24H [facility] Stop: 11/23/19 12:06 Last Admin: 11/10/19 14:25 Dose: 15 mls/hr Documented by: Piperacillin Sod/Tazobactam (Sod 3.375 gm/ Dextrose) 115 mls @ 28.75 mls/hr IV Q8H [facility]; Protocol Stop: 11/20/19 17:59 Last Infusion: 11/11/19 04:53 Dose: Infused Documented by: Magnesium Hydroxide (Magnesium Hydroxide Susp 30 Ml Udc) 30 ml PO Q12H PRN PRN Reason: Constipation Stop: 12/09/19 06:23 Miscellaneous (Remove Nicoderm Patch) 1 ea N/A DAILY@0859 [facility] Stop: 12/09/19 17:28 Last Admin: 11/11/19 08:44 Dose: 1 ea Documented by: Miscellaneous Information (Piperacill/Tazobac Consult Active) 1 ea N/A UD PRN PRN Reason: Consult Stop: 12/10/19 12:10 Naloxone HCl (Naloxone Hcl 0.4 Mg/1 Ml Vial/Carp) 0.1 mg IV Q5M PRN; Protocol PRN Reason: Oversedation/Resp Depression Stop: 11/23/19 12:04 Nicotine (Nicotine 21 Mg/24 Hr Tdsy) 21 mg TD QAM [facility] Stop: 12/09/19 17:29 Last Admin: 11/11/19 08:45 Dose: Not Given Documented by: Ondansetron HCl (Ondansetron Inj 2 Mg/Ml 2 Ml Vial) 4 mg IV Q6H PRN PRN Reason: Nausea Stop: 12/09/19 06:23 Last Admin: 11/09/19 17:46 Dose: 4 mg Documented by: Pantoprazole Sodium (Pantoprazole 40 Mg Tab) 40 mg PO DAILY [facility] Stop: 12/09/19 08:59 Last Admin: 11/11/19 08:42 Dose: 40 mg Documented by: Sertraline HCl (Sertraline Hcl 100 Mg Tablet) [facility] Stop: 12/09/19 08:59 Last Admin: 11/11/19 08:42 Dose: 100 mg Documented by: Simvastatin (Simvastatin 40 Mg Tab) 40 mg PO QAM [facility] Stop: 12/09/19 08:59 Last Admin: 11/11/19 08:42 Dose: 40 mg Documented by: PG Care Time/CCT Total # of Minutes Spent Total Time Spent with Patient: Total time spent is greater than 50% in coordination of care (as documented) at patient's floor/unit and/or counseling patient: Coding Level of Care Code 26677 Subseq Hosp Care Lvl 2 Diagnoses Recurrent acute pancreatitis K85.90 Anxiety F41.9 Depression F32.9 Peripheral neuropathy G62.9 Hypertension I10 Hyperlipidemia E78.5 GERD (gastroesophageal reflux disease) K21.9 Alcohol use disorder
[2019-11-11] MEDS: HYDROmorphone INJ 1 MG/ML SYRINGE IV PRN ×6 (10:39→23:36)
[2019-11-11] MEDS: HydrALAZINE HCL 20 MG/ML VIAL IV PRN (22:45)
[2019-11-12] MEDS: PIPERACILLIN/TAZOBACTAM 3.375 GM in DEXTROSE 5% 100 ML IV SCH ×3 (01:47→17:38)
[2019-11-12] MEDS: HYDROmorphone INJ 1 MG/ML SYRINGE IV PRN ×4 (02:29→09:07)
[2019-11-12 08:05] LABS: Albumin Level 3.1 gm/dl (3.4-5.0); BUN Creatinine Ratio 8.6 (10-20); Calcium 9.8 mg/dl (8.5-10.1); Est GFR (African American) 130.2; Est GFR (Non-African American) 112.3; Magnesium 2.1 mg/dl (1.8-2.4); Potassium 3.4 mmol/L (3.5-5.1)
[2019-11-12 08:09] LABS: Albumin Globulin Ratio 0.6 (0.9-2); Bilirubin,Total 0.4 mg/dl (0.2-1); Globulin 5.1 gm/dl (2.5-4.0); Total Protein 8.2 gm/dl (6.4-8.2)
[2019-11-12] MEDS: NICOTINE 21 MG/24 HR TDSY TD SCH (08:39)
[2019-11-12] MEDS: SIMVASTATIN 40 MG TAB PO SCH (08:41)
[2019-11-12] MEDS: GABAPENTIN 800 MG TAB PO SCH ×3 (08:41→22:18)
[2019-11-12] MEDS: cloNIDine HCL 0.3 MG TAB PO SCH ×2 (08:41→22:17)
[2019-11-12] MEDS: PANTOprazole 40 MG TAB PO SCH (08:42)
[2019-11-12] MEDS: ATENOLOL 50 MG TABLET PO SCH (08:42)
[2019-11-12] MEDS: SERTRALINE HCL 100 MG TABLET PO SCH (08:42)
[2019-11-12] MEDS: DiphenhydrAMINE HCL 50 MG/ML VIAL IV PRN ×3 (08:51→22:16)
[2019-11-12] MEDS: ENOXAPARIN INJ 40 MG/0.4 ML SYR SQ SCH (08:51)
[2019-11-12] MEDS: HYDROmorphone INJ 0.5 MG/0.5 ML SYR IV PRN ×5 (11:25→23:10)
--- NOTE | 2019-11-12 15:38 | Hospitalist Progress Note ---
Date of Service November 12, 2019 Assessment & Plan (1) Recurrent acute pancreatitis: By history of patient and significant other, this is his third episode within the past few months. due to excessive alcohol intake, drinking heavily up until morning of 11/05, history of heavy alcohol abuse Amylase 638, lipase 7358 with normal LFTs at time of admission CT abdomen pelvis consistent with acute pancreatitis, without suggestion of chronic pancreatitis or pseudocyst. Unable to do MRCP due to presence of metal in his recently surgerized right thumb. treated with NSS at 200cc/hr, stopped fluids on 11/10 pain was very severe, required ART DISPLAY MAKER for two days, now pain is better, using Dilaudid 0.5 q4, Oxycodone 5mg q4 PRN tolerated liquid diet on 11/10, advanced to low fat diet this morning, tolerated well Lipase down to 361, BUN stable which is good sign, calcium normal making a lot more urine today, mobilizing fluids CT abdomen/pelvis repeated 11/09 due to severe pain, not getting better possible early necrosis? start on Zosyn for [address] 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 again, needs repeat CT in 8 weeks again, needs to avoid all alcohol, patient has been told this about 10 times since he has been here (2) Anxiety: mood stable Continue sertraline and gabapentin. (3) Depression: See above (4) Peripheral neuropathy: Continue gabapentin (5) Hypertension: Continue atenolol and clonidine BP better today with pain control and rest stop tele monitor today (6) Hyperlipidemia: Continue simvastatin (7) GERD (gastroesophageal reflux disease): pantoprazole (8) Alcohol use disorder: Patient is not showing any signs of withdrawal at this point, however alcohol level was normal in the ED, suggesting that he may need to be placed on AWSS protocol. Urine drug screen was positive for opiates (of which he is prescribed hydrocodone), benzodiazepines (which is not on his med list) and marijuana. no current signs of withdrawal again, told to stop drinking by myself, admitting physician, GI specialist told patient that even one drink could trigger another pancreatitis attack, at risk for chronic pancreatitis, pseudocyst, necrosis told him that he could if he continues to drink also educated on risks of cirrhosis he says he is committed to staying sober (9) Fracture of thumb, right, closed: was surgically corrected prior to this admission completed his course of perioperative antibiotics while here follow up with ortho as previously scheduled Admission and Anticipated Discharge Date Admission Date: November 09, 2019 Subjective patient tolerating food today, minimal pain, no nausea vitals stable discussed that his pancreatitis was severe, want to make sure he eats well all day today and tomorrow morning suspect he can go tomorrow, he agrees we had a discussion about alcohol, about how if he drinks again, even a small amount, will trigger pancreatitis again I told him to remember how bad his pain was and to remember that pain if he has the urge to drink labs today reviewed, lipase down to 300's, K is 3.4, BUN low at 7 he is making a lot of urine, mobilizing all the fluids he was given initially Review of Systems Review of Systems: All systems reviewed & are unremarkable except as noted in Subjective Gastrointestinal: + abdominal pain (mild) Physical Exam Constitutional: well nourished, + ill appearing and + in distress; + uncomfortable Eyes: PERRL, conjunctivae normal, anicteric sclerae ENMT: external ear and nose normal, oropharynx normal Neck: trachea midline, no thyromegaly Respiratory: normal respiratory effort, lungs clear to auscultation Cardiovascular: RRR, no murmur, no edema Gastrointestinal (Abdomen): Inspection/Auscultation: abdomen normal to inspection and normal bowel sounds; abdomen not distended Percussion/Palpation: abdomen soft and + tympanic to percussion; abdomen nontender, no guarding, abdomen not rigid and no ascites Musculoskeletal: no cyanosis or clubbing, extremities motor strength 5/5 (right thumb in cast, recent surgery) Skin: no rashes, warm and dry Neurologic: patellar DTR's 2+ bilat, sensation intact and PERRL, EOMI, accommodation nl, no face palsy, no dysarthria Psychiatric: A+Ox3, euthymic affect Lymphatic: no cervical or axillary lymphadenopathy Results & Data Results & Data ([facility]) Vital Signs (Past 12 Hours) Vital Signs Temp Pulse Resp BP Pulse Ox 11/12/19 15:26 37.2 C 62 20 170/107 H 94 11/12/19 06:51 36.8 C 66 20 151/98 H 96 Laboratory Results Laboratory Results - last 24 hr 11/12/19 07:01 Sodium 134 L Potassium 3.4 L Chloride 103 Carbon Dioxide 25 Anion Gap 5.0 BUN 7 Creatinine 0.79 Est Cr Clr Drug Dosing 142.0 Est GFR ( Amer) 130.2 Est GFR (Non-Af Amer) 112.3 BUN/Creatinine Ratio 8.6 L Glucose 166 H Calcium 9.8 Magnesium 2.1 Total Bilirubin 0.4 AST 23 ALT 33 Alkaline Phosphatase 89 Total Protein 8.2 Albumin 3.1 L Globulin 5.1 H Albumin/Globulin Ratio 0.6 L Lipase 361 Medications Administered Current Inpatient Medications Acetaminophen (Acetaminophen 325 Mg Tab) 650 mg PO Q4H PRN PRN Reason: Pain or Fever Stop: 12/09/19 06:23 Last Admin: 11/09/19 22:18 Dose: 650 mg Documented by: Al Hydrox/Mg Hydrox/Simethicone (Aluminum/Magnesium Susp 30 Ml Udc) 15 ml PO Q4H PRN PRN Reason: Dyspepsia Stop: 12/09/19 06:23 Atenolol (Atenolol 50 Mg Tablet) 50 mg PO QAM [facility] Stop: 12/09/19 08:59 Last Admin: 11/12/19 08:42 Dose: 50 mg Documented by: Clonidine HCl (Clonidine Hcl 0.3 Mg Tab) 0.3 mg PO BID [facility] Stop: 12/09/19 08:59 Last Admin: 11/12/19 08:41 Dose: 0.3 mg Documented by: Diphenhydramine HCl (Diphenhydramine Hcl 50 Mg/Ml Vial) 25 mg IV Q3H PRN PRN Reason: Moderate Pain Stop: 12/09/19 06:23 Last Admin: 11/12/19 08:51 Dose: 25 mg Documented by: Enoxaparin Sodium (Enoxaparin Inj 40 Mg/0.4 Ml Syr) 40 mg SQ Q24H [facility] Stop: 12/09/19 08:59 Last Admin: 11/12/19 08:51 Dose: Not Given Documented by: Gabapentin (Gabapentin 800 Mg Tab) 800 mg PO TID [facility] Stop: 12/09/19 08:59 Last Admin: 11/12/19 12:55 Dose: 800 mg Documented by: Hydralazine HCl (Hydralazine Hcl 20 Mg/Ml Vial) 10 mg IV Q4H PRN PRN Reason: Blood Pressure - High Stop: 12/09/19 06:23 Last Admin: 11/11/19 22:45 Dose: 10 mg Documented by: Hydromorphone HCl (Hydromorphone Inj 0.5 Mg/0.5 Ml Syr) 0.5 mg IV Q3H PRN PRN Reason: Pain Stop: 11/26/19 11:59 Last Admin: 11/12/19 12:57 Dose: 0.5 mg Documented by: Piperacillin Sod/Tazobactam (Sod 3.375 gm/ Dextrose) 115 mls @ 28.75 mls/hr IV Q8H [facility]; Protocol Stop: 11/20/19 17:59 Last Admin: 11/12/19 11:26 Dose: 28.8 mls/hr Documented by: Miscellaneous (Remove Nicoderm Patch) 1 ea N/A DAILY@0859 [facility] Stop: 12/09/19 17:28 Last Admin: 11/12/19 08:39 Dose: 1 ea Documented by: Miscellaneous Information (Piperacill/Tazobac Consult Active) 1 ea N/A UD PRN PRN Reason: Consult Stop: 12/10/19 12:10 Naloxone HCl (Naloxone Hcl 0.4 Mg/1 Ml Vial/Carp) 0.1 mg IV Q5M PRN; Protocol PRN Reason: Oversedation/Resp Depression Stop: 11/23/19 12:04 Nicotine (Nicotine 21 Mg/24 Hr Tdsy) 21 mg TD QAM [facility] Stop: 12/09/19 17:29 Last Admin: 11/12/19 08:39 Dose: Not Given Documented by: Ondansetron HCl (Ondansetron Inj 2 Mg/Ml 2 Ml Vial) 4 mg IV Q6H PRN PRN Reason: Nausea Stop: 12/09/19 06:23 Last Admin: 11/09/19 17:46 Dose: 4 mg Documented by: Oxycodone HCl (Oxycodone Hcl Ir 5 Mg Tab (Immediate Release)) 5 mg PO Q4H PRN PRN Reason: Pain Stop: 11/26/19 09:43 Pantoprazole Sodium (Pantoprazole 40 Mg Tab) 40 mg PO DAILY [facility] Stop: 12/09/19 08:59 Last Admin: 11/12/19 08:42 Dose: 40 mg Documented by: Sertraline HCl (Sertraline Hcl 100 Mg Tablet) 100 mg PO QAM [facility] Stop: 12/09/19 08:59 Last Admin: 11/12/19 08:42 Dose: 100 mg Documented by: Simvastatin (Simvastatin 40 Mg Tab) 40 mg PO QAM [facility] Stop: 12/09/19 08:59 Last Admin: 11/12/19 08:41 Dose: 40 mg Documented by: PG Care Time/CCT Total # of Minutes Spent Total Time Spent with Patient: Total time spent is greater than 50% in coordination of care (as documented) at patient's floor/unit and/or counseling patient: Coding Level of Care Code 09100 Subseq Hosp Care Lvl 3 Diagnoses Recurrent acute pancreatitis K85.90 Anxiety F41.9 Depression F32.9 Peripheral neuropathy G62.9 Hypertension I10 Hyperlipidemia E78.5 GERD (gastroesophageal reflux disease) K21.9 Alcohol use disorder Fracture of thumb, right, closed S62.501A
[2019-11-12] MEDS: HydrALAZINE HCL 20 MG/ML VIAL IV PRN (15:43)
[2019-11-12] MEDS: OXYCODONE HCL IR 5 MG TAB (IMMEDIATE RELEASE) PO PRN ×2 (17:45→22:15)
[2019-11-13] MEDS: PIPERACILLIN/TAZOBACTAM 3.375 GM in DEXTROSE 5% 100 ML IV SCH ×3 (02:20→11:29)
[2019-11-13] MEDS: HYDROmorphone INJ 0.5 MG/0.5 ML SYR IV PRN ×2 (02:39→05:57)
[2019-11-13] MEDS: OXYCODONE HCL IR 5 MG TAB (IMMEDIATE RELEASE) PO PRN ×2 (05:20→11:37)
[2019-11-13] MEDS: DiphenhydrAMINE HCL 50 MG/ML VIAL IV PRN (05:58)
[2019-11-13 06:40] LABS: Creatinine Clr Calc Pharmacy 145.7 ml/min; Est GFR (African American) 131.6; Est GFR (Non-African American) 113.5
[2019-11-13] MEDS: ENOXAPARIN INJ 40 MG/0.4 ML SYR SQ SCH (08:43)
[2019-11-13] MEDS: GABAPENTIN 800 MG TAB PO SCH (08:44)
[2019-11-13] MEDS: NICOTINE 21 MG/24 HR TDSY TD SCH (08:44)
[2019-11-13] MEDS: cloNIDine HCL 0.3 MG TAB PO SCH (08:44)
[2019-11-13] MEDS: PANTOprazole 40 MG TAB PO SCH (08:45)
[2019-11-13] MEDS: SIMVASTATIN 40 MG TAB PO SCH (08:45)
[2019-11-13] MEDS: SERTRALINE HCL 100 MG TABLET PO SCH (08:46)
[2019-11-13] MEDS: ATENOLOL 50 MG TABLET PO SCH (08:47)
[2019-11-13 10:00] LABS: Basophils # (auto) 0.02 K/uL (0-0.2); Basophils % (auto) 0.3 %; Eosinophils # (auto) 0.29 K/uL (0-0.5); Eosinophils % (auto) 4.9 %; Hematocrit (blood only) 39.6 % (42-52); Hemoglobin 13.5 g/dL (14.0-18.0); Immature Granulocytes # (auto) 0.02 K/uL (0.00-0.02); Immature Granulocytes % (auto) 0.3 %; Lymphocytes # (auto) 1.21 K/uL (1.2-3.4); Lymphocytes % (auto) 20.5 %; Mean Corpuscular Hemoglobin 32.1 pg (25-34); Mean Corpuscular Hgb Conc 34.1 g/dL (32-36); Mean Corpuscular Volume 94.3 fL (80-100); Mean Platelet Volume 11.3 fL (7.4-10.4); Monocytes # (auto) 0.98 K/uL (0.11-0.59); Monocytes % (auto) 16.6 %; Neutrophils # (auto) 3.37 K/uL (1.4-6.5); Neutrophils % (auto) 57.4 %; Platelet Count 239 K/uL (130-400); RDW Coefficient of Variation 12.8 % (11.5-14.5); RDW Standard Deviation 44.2 fL (36.4-46.3); White Blood Count 5.89 K/uL (4.8-10.8)
[2019-11-13 10:14] LABS: Alanine Aminotransferase 36 U/L (12-78); Albumin Level 3.7 gm/dl (3.4-5.0); Aspartate Aminotransferase 25 U/L (15-37); BUN Creatinine Ratio 12.6 (10-20); Bilirubin Direct < 0.1 mg/dl (0-0.2); Blood Urea Nitrogen 10 mg/dl (7-18); Calcium 9.6 mg/dl (8.5-10.1); Carbon Dioxide 27 mmol/L (21-32); Chloride 106 mmol/L (98-107); Est GFR (African American) 130.2; Est GFR (Non-African American) 112.3; Glucose 105 mg/dl (70-99); Potassium 3.6 mmol/L (3.5-5.1); Sodium 138 mmol/L (136-145)
[2019-11-13 10:17] LABS: Alkaline Phosphatase 90 U/L (45-117); Bilirubin,Total 0.4 mg/dl (0.2-1); Total Protein 8.8 gm/dl (6.4-8.2)
--- NOTE | 2019-11-13 11:05 | Discharge Summary ---
Date of Service November 13, 2019 Admission HPI Per Admitting Provider The patient is a 39-year-old male with a past medical history of recurrent pancreatitis, hypertension, GERD, peripheral neuropathy, depression, hyperlipidemia and status post recent surgery on right thumb on 11/07/2019. He presents to the emergency department with complaint of worsening abdominal pain similar to previous episodes of pancreatitis, which have been treated at [facility] and most recently [facility] [place]. Laboratories in the emergency department showed amylase [address] of abdomen the pelvis was consistent with pancreatitis. Urine drug screen was positive for opiates, benzos and marijuana. He has been prescribed hydrocodone on his current med list. Admission Exam Per Admitting Provider Physical Exam: The patient is awake, mildly sedated and lethargic from pain medications, well developed and well nourished, normocephalic and atraumatic, lying in bed and reports to be in moderate acute distress. HEENT--PERRL, EOMI, mucous membranes and oropharynx normal. Neck--supple. No JVD. No bruits. Thyroid normal, trachea midline, no adenopathy. Heart--normal S1 and S2. No murmurs, rubs or gallops. Lungs--clear bilaterally, no respiratory distress, no accessory muscle use. Abdomen--normal bowel sounds and soft. Nontender. Nondistended. Extremities--no cyanosis or clubbing. No edema. Right forearm and thumb in immobilizer. Dermatologic--normal skin turgor, normal color, no abnormal lymph nodes, no rash. Neurologic--cranial nerves II through XII grossly intact. Rheumatologic--normal range of motion. Psychiatric--normal affect. Principal Diagnosis Acute recurrent alcoholic pancreatitis, splenic vein thrombosis Discharge Exam Constitutional WD/WN, vitals as above no acute distress Eyes + anicteric sclerae and PERRL ENMT mmm Neck trachea midline, no thyromegaly Respiratory normal respiratory effort, lungs clear to auscultation Cardiovascular RRR, no murmur, no edema Gastrointestinal (Abdomen) normal bowel sounds, soft, nontender, no hepatosplenomegaly Musculoskeletal no cyanosis or clubbing, extremities motor strength 5/5 Skin no rashes, warm and dry Neurologic patellar DTR's 2+ bilat, sensation intact Psychiatric Orientation: alert and oriented x 3 Lymphatic no cervical or axillary lymphadenopathy Discharge Data Allergies Allergy/AdvReac Type Severity Reaction Status Date / Time No Known Allergies Allergy Verified 11/09/19 00:56 Consultations 11/09/19 03:14 ED Decision to Admit Stat 11/09/19 06:24 Consult Case Management - Discharge Planning Routine Consult Gastroenterology Routine 11/10/19 15:13 Consult General Surgery Routine Ordered Studies 11/09/19 01:08 CT abd pelvis IV con only Urgent 11/10/19 09:15 CT abd pelvis IV con only Urgent Hospital Course (1) Recurrent acute pancreatitis: * By history of patient and significant other, this is his third episode within the past few months -- due to excessive alcohol intake, drinking heavily up until morning of 11/05, history of heavy alcohol abuse * Amylase 638, lipase 7358 with normal LFTs at time of admission * CT abdomen pelvis consistent with acute pancreatitis, without suggestion of chronic pancreatitis or pseudocyst. -->Unable to do MRCP due to presence of metal in his recent surgery on right thumb. * Treated with IVF, pain control, antiemetics --> pain improved, lipase normalized, good UO, calcium wnl 9.6. * Repeat CT A/P on 11/09 for severe pain which showed possible edema/early necrosis and incidental non-occlusive splenic vein thrombosis also seen * Continued on Zosyn and discharged on Augmentin, WBC normalized * Surgery consulted, GI consulted -- no indication for splenectomy at this time * --> Recommending repeat CT in 8 weeks as outpatient * --> Instructed to AVOID ALL ALCOHOL (educated >10 times during current stay) Patient without insurance and not ideal to use DOAC in patient with abd thrombus per conversation with coag clinic --> * With regards to incidental non-occlusive splenic vein thrombosis --> discussed case with GI and Coag clinic with rec for Lovenox to Coumadin bridge (he had previously refused lovenox while inpatient) and follow up with coag clinic in 2 days. Will likely need to be on anticoagulation for ~6 [address] discussion with Dr. Sánchez, however if patient continues to drink and provoke inflammatory state, may need to be on lifelong. (2) Anxiety: Continued sertraline and gabapentin. (3) Depression: (4) Peripheral neuropathy: Continued gabapentin (5) Hypertension: Continued atenolol and clonidine (6) Hyperlipidemia: Continued simvastatin (7) GERD (gastroesophageal reflux disease): Continued pantoprazole (8) Alcohol use disorder: No signs of withdrawal Alcohol level in ED wnl Urine drug screen was positive for opiates (of which he is prescribed hydrocodone), benzodiazepines (which is not on his med list) and marijuana. again, told to stop drinking by myself, admitting physician, GI specialist told patient that even one drink could trigger another pancreatitis attack, at risk for chronic pancreatitis, pseudocyst, necrosis told him that he could if he continues to drink also educated on risks of cirrhosis he says he is committed to staying sober (9) Fracture of thumb, right, closed: surgically corrected prior to this admission completed his course of perioperative antibiotics while here follow up with ortho as previously scheduled Total Time Total Time Spent Total Time Spent (In Minutes): 120 Discharge Plan Discharge Items Patient Disposition: Home - Self-Care Reason For Visit: PANCREATITIS Discharge Diagnosis: Pancreatitis Goals: You have been hospitalized for an acute medical problem. During your stay at [facility], we have made an effort to correct the problem that brought you to the hospital while keeping you as comfortable as possible. Medications were used to bring your condition under control and your discharge instructions will include directions for any medications you should take after leaving the hospital. Please make sure you see your Primary Care Provider as part of your follow up plan. Activity: Resume your previous activity Non-emergency contact: Primary Care Provider and [employer] Call non-emergency contact if: you have any medication questions, your symptoms worsen and your pain is not controlled Follow-up/Referrals: Myron Abrams DO [Physician] - 11/21/19 1:20 pm (2 weeks) Haylee Sánchez MD, PhD [Pathologist] - 11/15/19 8:45 am (You have an appointment with Dr. Sánchez on Wednesday, 11/14 at 8:45am to manage your new medication, Coumadin. It is important that you keep this appointment for Dr. Sánchez to make adjustements if needed. She is located around the back of the hospital at the [facility].) Bacilio Weeks MD [Primary Care Provider] - 11/16/19 9:10 am Diet: Heart Healthy Diet Comment: NO ALCOHOL Addtl Attending Provider Instructions: You have been hospitalized and found to have acute pancreatitis. Given repeat pancreatitis, repeat imaging was obtained and you are at high risk for necrosis of pancreas. You were placed on antibiotics IV and are being sent home with a prescription for Augmentin to complete full course. You were also found to have a small blood clot in the blood supply to the spleen. This was discussed with our anticoagulation provider and it is being recommended that you be sent on Lovenox injections with a bridge to Coumadin. You will be started on 5 mg by mouth daily for the Coumadin and will have follow up with the coagulation clinic in three days for further titration in this medication. You are being sent with prescriptions for the following: * Lovenox 40mg SQ injection DAILY * Coumadin 5mg by mouth DAILY (at the same time) You will have repeat labs to ensure your blood is therapeutic and then will continue on coumadin daily. Please avoid all ibuprofen/motrin/NSAIDs while on this medication as this increases risk of bleeding. The PDMP was checked and it appears a prescription for 40tablets of pain medication were sent on November 07, and no further prescription will be sent. It is recommended that you have repeat CT scan of your abdomen as an outpatient in the next 8 weeks for follow-up. Please follow up with your PCP and specialists as above to monitor your progress. Please return to the emergency department for any worsening pain, bleeding, or for any other symptoms that are concerning for you. It has been a pleasure being a part of the medical team providing for you while you have been in the hospital. Take care! Addtl Veterinary Technician Assistant Provider Instructions: Medication Instructions: * Warfarin is a medicine prescribed to prevent blood clots * Warfarin will thin your blood and help prevent new clots * Take your medications exactly as directed * Never skip a dose. Never take a double dose. If you miss a dose, take it as soon as you remember * It is important for your doctor to monitor your prothrombin time (PT). This is a lab test * Keep your appointment for lab tests Risk of Adverse Drug Reactions and Interactions: * Warfarin increases your risk of bleeding * The food you eat and other medications you take can affect how Warfarin works in your body * Ask your doctor about daily aspirin therapy * It is very important to talk with your doctor about all of the other medicines, antibiotics, vitamins or herbal products that you are taking * All of your medication must be approved by your doctor, including new medicines, as well as medicines you have taken before you started taking Warfarin Diet: * In order for Warfarin to work properly, it is important to keep your intake of Vitamin K as consistent as possible * You should avoid any sudden change in Vitamin K intake * Report any significant changes in your diet or weight to your doctor Call your Primary Care doctor if you experience any of the following: * Swelling or Pain in your leg * Sudden, continuous pain deep in a muscle * Pain that worsens when you are active or when you stand still for a long time * Chest Pain * Sudden Shortness of Breath * Rapid or pounding heart beat * Fainting * Dizziness * Cough with blood or bloody sputum * Sweating more than normal * Bruises * Heavy or uncontrolled bleeding * Blood in your urine, stool or vomit * Black or tarry stools Caring for Your Self at Home: * Avoid sitting, standing or lying down for long periods without moving your legs and feet * When traveling by car, stop to get out and move around at least once every 3 hours * On long airplane, train or bus rides, get up and move around when possible * If you can't get up, wiggle your toes and tighten your calves to keep your blood moving Follow Up: It is important for you to keep your follow up appointments with your medical provider. Pending Studies at Discharge: No Stand-Alone Forms: [facility], Smoking Cessation Medications and DC Order Prescriptions: New enoxaparin 40 mg/0.4 mL Syringe 40 mg subcut Q24H 14 Days Qty: 5.6 RF: 0 amoxicillin-pot clavulanate [Augmentin] 875-125 mg tablet 1 tab PO BID Qty: 14 RF: 0 warfarin 5 mg tablet 5 mg PO DAILY Qty: 30 RF: 0 Continued clonidine HCl 0.3 mg Tablet 0.3 mg PO BID RF: 0 sertraline 100 mg Tablet 100 mg PO QAM RF: 0 simvastatin 40 mg Tablet 40 mg PO QAM RF: 0 gabapentin 800 mg Tablet 800 mg PO TID RF: 0 hydrochlorothiazide 25 mg Tablet 25 mg PO QAM RF: 0 atenolol 50 mg Tablet 50 mg PO QAM RF: 0 esomeprazole magnesium [Nexium] 40 mg Capsule,Delayed Release(Dr/Ec) 40 mg PO DAILY RF: 0 hydrocodone-acetaminophen 5-325 mg Tablet 1 tab PO Q6H PRN (Reason: Pain) Qty: 6 RF: 0 Discharge Orders: Discharge Order (Routine); Ordered 11/13/19 Ordered By: Maribel Gerber/Other Patient Handouts: What to Know When TakingWarfarin, ED Pancreatitis, Warfarin tablets, Enoxaparin injection Admission Data Admit Date/Time: 11/09/19 04:05 Attending Provider: Jessenia Valdez Admit Provider: Donavon Segundo Primary Care Provider: Bacilio Weeks Other Providers: Donavon Segundo ; Myron Abrams ; Dusty Reeves Other Interventions: Discharge Summary Assessment (RN) Last Done: 11/13/19 12:07 Supervising Physician Co-Signing Physician Notes Pt denies any abd pain, is latosha po reg diet, denies CP or SOB. VSS anicteric sclerae, NAD, AAOx3 RRR no mgr CTAB no wcr, breahting unlabored Abd +BS soft NT ND Ext no calf tenderness or edema 39 yo male here with acute recurrent pancreatitis, alcohol related, with associated splenic vein thrombosis Plan as outlined above, start Lovenox bridge to Coumadin for thrombosis Counseled on EtOH cessation Coding Level of Care Code D/C Day Management >30 mins Diagnoses Recurrent acute pancreatitis K85.90 Anxiety F41.9 Depression F32.9 Peripheral neuropathy G62.9 Hypertension I10 Hyperlipidemia E78.5 GERD (gastroesophageal reflux disease) K21.9 Alcohol use disorder Fracture of thumb, right, closed S62.501A
== END 2019-11-13 13:20 | disposition home or self-care (01) | DRG 440 ==
LOC: ED 00:11 → SUATTDRO 04:05 → 2N 04:05 → 3W 11-12 22:38